=== PATIENT | female | born 1960 | race Caucasian/White ===

== ENCOUNTER 2019-10-05 10:20 | Outpatient (CLI) | payer OTHER, SELFPAY ==
[2019-10-05 11:45] LABS: Thyroid Stimulating Hormone 0.786 uIU/mL (0.465-4.680)
[2019-10-05 11:50] LABS: Blood Urea Nitrogen 36 mg/dL (7-17); Calcium 9.4 mg/dL (8.4-10.2); Carbon Dioxide 22 mmol/L (22-30); Chloride 100 mmol/L (98-107); Estimated Glomerular Filt Rate 26; Glucose 95 mg/dL (65-105); Potassium 4.6 mmol/L (3.4-5.0); Sodium 140 mmol/L (137-145)
== END 2019-10-05 10:21 | disposition home or self-care (01) ==
PROVIDERS: PCP Family Medicine; Visit Provider Nurse Practitioner Family
DX: E03.9 Hypothyroidism, unspecified (principal); N18.3 Chronic kidney disease, stage 3 (moderate)
CPT/HCPCS: 36415; 80048; 84436; 84443

== ENCOUNTER 2019-11-10 09:00 | Outpatient (CLI) | payer OTHER, SELFPAY ==
[2019-11-10 09:29] LABS: Hematocrit 33.6 % (37.0-47.0); Hemoglobin 10.9 g/dL (12.0-15.0); Mean Corpuscular HGB Conc 32.4 g/dl (32-36); Mean Corpuscular Hemoglobin 27.9 pg (26-34); Mean Corpuscular Volume 86.2 fl (80-100); Mean Platelet Volume 9.8 fl (7.4-10.4); Platelet Count Result 436 k/mm3 (150-375); Red Cell Distribution Width 13.7 % (11.5-14.5); White Blood Count 8.9 K/mm3 (4.5-10.0)
[2019-11-10 09:31] LABS: Add Urine Microscopic? YES; Appearance Urine Clear (Clear); Bacteria Urine Trace /hpf; Bilirubin Urine Negative (Negative); Blood Urine Negative (Negative); Color Urine Yellow (Yellow); Glucose Urine UA Negative (Negative); Ketones Urine Negative (Negative); Leukocyte Esterase Ur Trace LEU/UL (NEGATIVE); Mucus Urine Rare /lpf; Nitrate Urine Negative (Negative); Protein Urine Negative (Negative); RBC Urine 0-2 /hpf (0-2); Specific Grav Ur 1.015 (1.001-1.035); Squamous Epithelial Cell Urine Occasional /hpf (Few); Urobilinogen Urine Negative mg/dL (<2.0); WBC Urine 0-3 /hpf (0-3)
[2019-11-10 09:36] LABS: Total Protein Urine Random 10 mg/dL
[2019-11-10 09:44] LABS: Albumin Level 4.5 g/dL (3.5-5.1); Blood Urea Nitrogen 34 mg/dL (7-17); Calcium 9.4 mg/dL (8.4-10.2); Carbon Dioxide 24 mmol/L (22-30); Chloride 103 mmol/L (98-107); Estimated Glomerular Filt Rate 29; Glucose 106 mg/dL (65-105); Potassium 4.7 mmol/L (3.4-5.0); Sodium 136 mmol/L (137-145)
[2019-11-10 09:51] LABS: Complement C3 124 mg/dL (88-165)
[2019-11-10 09:54] LABS: Erythrocyte Sedimentation Rate 77 mm/hr (0-20)
[2019-11-10 09:56] LABS: Parathyroid Intact 95.8 pg/mL (7.5-53.5)
[2019-11-10 13:13] LABS: Vitamin D 25 Hydroxy 53.6 ng/mL
[2019-11-12 13:35] LABS: Complement Total CH50 >60 U/mL (31-60)
[2019-11-12 18:13] LABS: Kappa\\Lambda Light Chains 1.27 (0.26-1.65); Lambda Light Chain 30.7 mg/L (5.7-26.3)
== END 2019-11-10 09:01 | disposition home or self-care (01) ==
PROVIDERS: PCP Family Medicine; Visit Provider Internal Medicine Nephrology
DX: N18.3 Chronic kidney disease, stage 3 (moderate) (principal)
CPT/HCPCS: 36415; 80069; 81001; 82306; 82570; 83883; 83970; 84156; 85027; 85652; 86038; 86160; 86162; 86334; 86335

== ENCOUNTER 2020-01-27 09:07 | Outpatient (CLI) | payer OTHER, SELFPAY ==
[2020-01-27 09:42] LABS: Basophils Percent Auto 0.5 % (0.2-1.2); Eosinophils Absolute Auto 0.3 K/mm3 (0-0.3); Eosinophils Percent Auto 2.8 % (0-4.4); Hematocrit 35.5 % (37.0-47.0); Hemoglobin 11.2 g/dL (12.0-15.0); Immature Granulocyte Absolute 0.02 K/mm3 (0.00-0.031); Immature Granulocyte Percent A 0.2 % (0-0.5); Lymphocytes Absolute Auto 2.27 K/mm3 (0.9-3.2); Lymphocytes Percent Auto 25.7 % (18.3-44.2); Mean Corpuscular HGB Conc 31.5 g/dl (32-36); Mean Corpuscular Hemoglobin 27.7 pg (26-34); Mean Corpuscular Volume 87.9 fl (80-100); Mean Platelet Volume 9.8 fl (7.4-10.4); Monocytes Absolute Auto 0.5 K/mm3 (0.1-0.6); Monocytes Percent Auto 5.1 % (2.6-8.5); Neutrophils Absolute Auto 5.8 K/mm3 (1.3-6.7); Neutrophils Percent Auto 65.7 % (45.5-73.1); Platelet Count Result 448 k/mm3 (150-375); Red Blood Count 4.04 M/mm3 (4.2-5.4); Red Cell Distribution Width 13.3 % (11.5-14.5); White Blood Count 8.8 K/mm3 (4.5-10.0)
[2020-01-27 09:53] LABS: Alanine Aminotransferase 16 U/L (4-35); Albumin Level 4.6 g/dL (3.5-5.1); Alkaline Phosphatase 99 U/L (38-126); Aspartate Amino Transferase 23 U/L (14-36); Bilirubin,Total 0.4 mg/dL (0.2-1.3); Blood Urea Nitrogen 36 mg/dL (7-17); Calcium 9.4 mg/dL (8.4-10.2); Carbon Dioxide 22 mmol/L (22-30); Chloride 105 mmol/L (98-107); Cholesterol 208 mg/dL (0-200); Estimated Glomerular Filt Rate 21; Glucose 95 mg/dL (65-105); HDL Direct 44 mg/dL; Potassium 5.1 mmol/L (3.4-5.0); Sodium 137 mmol/L (137-145); Triglycerides 122 mg/dL (<150)
[2020-01-27 09:58] LABS: Hemoglobin A1C 5.8 % (<5.7)
[2020-01-27 10:03] LABS: LDL Cholesterol Direct 135 mg/dL
[2020-01-27 10:19] LABS: Free T4 Free Thyroxine 1.24 ng/mL (0.78-2.19)
[2020-01-27 10:40] LABS: Creatinine Urine 163.8 mg/dL
[2020-01-27 12:46] LABS: MALB Creatinine Ratio 5.6 mg/g (0-30); Microalbumin Urine Random 9.2 mg/L (0-16.7)
== END 2020-01-27 09:08 | disposition home or self-care (01) ==
LOC: ANHLAB 09:08
PROVIDERS: PCP Family Medicine; Visit Provider Family Medicine
DX: I10 Essential (primary) hypertension (principal); E03.9 Hypothyroidism, unspecified; R73.03 Prediabetes; E04.9 Nontoxic goiter, unspecified; E78.2 Mixed hyperlipidemia
CPT/HCPCS: 36415; 80053; 80061; 82043; 83036; 84439; 84443; 85025

== ENCOUNTER 2020-02-14 12:35 | Outpatient (CLI) | payer OTHER, SELFPAY ==
--- NOTE | ~2020-02-14 | NM_ITS ---
EXAMINATION: NM renal flow and function DATE: 02/14/2020 14:04 INDICATION: Stage IV chronic kidney disease TECHNIQUE: 7.8 mCi Tc-99m MAG3 was administered IV. The patient was scanned in the supine position. A posterior abdominal radionuclide angiogram was obtained. A subsequent time course of static images of the kidneys, ureters, and bladder was obtained. COMPARISON: CT dated 09/07/2010 FINDINGS: The posterior abdominal radionuclide angiogram and sequential static images show normal size, positio n, and morphology of the kidneys. Peak renal parenchymal uptake was 19 min in left kidney and 20 min in right kidney (normal peak 3-5 minutes). The relative early renal uptake was 35% on the right and 65% on the left (<40% is abnormal). No abnormalities of the ureters or bladder are seen. IMPRESSION: 1. Asymmetric renal function with right kidney providing 35% and left kidney 65% of total renal func tion. 2. Delayed time to peak uptake in both kidneys consistent with nonspecific nephropathy. Reviewed, dictated and finalized at location A. IMPRESSION: 1. Asymmetric renal function with right kidney providing 35% and left kidney 6 5% of total renal function. 2. Delayed time to peak uptake in both kidneys consistent with nonspecific nep hropathy.
== END 2020-02-14 12:36 | disposition home or self-care (01) ==
PROVIDERS: PCP Family Medicine; Visit Provider Internal Medicine Nephrology
DX: N18.4 Chronic kidney disease, stage 4 (severe) (principal)
CPT/HCPCS: 78707; A9562

== ENCOUNTER 2020-02-23 10:17 | Outpatient (CLI) | payer OTHER, SELFPAY ==
[2020-02-23 10:56] LABS: Hematocrit 35.6 % (37.0-47.0); Hemoglobin 11.4 g/dL (12.0-15.0); Mean Corpuscular Hemoglobin 27.9 pg (26-34); Mean Corpuscular Volume 87.3 fl (80-100); Mean Platelet Volume 9.4 fl (7.4-10.4); Platelet Count Result 458 k/mm3 (150-375); Red Blood Count 4.08 M/mm3 (4.2-5.4); Red Cell Distribution Width 13.2 % (11.5-14.5); White Blood Count 8.4 K/mm3 (4.5-10.0)
[2020-02-23 11:13] LABS: Albumin Level 4.3 g/dL (3.5-5.1); Blood Urea Nitrogen 16 mg/dL (7-17); Calcium 8.8 mg/dL (8.4-10.2); Carbon Dioxide 22 mmol/L (22-30); Chloride 107 mmol/L (98-107); Estimated Glomerular Filt Rate 39; Glucose 91 mg/dL (65-105); Phosphorus 3.4 mg/dL (2.5-4.5); Potassium 4.6 mmol/L (3.4-5.0); Sodium 137 mmol/L (137-145)
[2020-02-23 11:20] LABS: Creatinine Urine 197.4 mg/dL; Total Protein Urine Random 13 mg/dL
[2020-02-23 11:25] LABS: Parathyroid Intact 140.2 pg/mL (7.5-53.5)
[2020-02-23 11:53] LABS: Potassium Urine Random 92.6 meq/L; Sodium Urine Random 67 meq/L
[2020-02-23 12:09] LABS: Vitamin D 25 Hydroxy 71.5 ng/mL
[2020-02-29 13:26] LABS: Chloride Rand Ur 110 mmol/L (32-290); Chloride/Creatinine Rand Ur 58 (38-318); Creatinine Random Urine 190 mg/dL (20-275)
== END 2020-02-23 10:18 | disposition home or self-care (01) ==
PROVIDERS: PCP Family Medicine; Visit Provider Internal Medicine Nephrology
DX: N18.4 Chronic kidney disease, stage 4 (severe) (principal)
CPT/HCPCS: 36415; 80069; 82306; 82436; 82570; 83970; 84133; 84156; 84300; 85027; 85999

== ENCOUNTER 2020-03-28 11:11 | Outpatient (CLI) | payer OTHER, SELFPAY ==
[2020-03-28 11:50] LABS: Albumin Level 4.3 g/dL (3.5-5.1); Anion Gap 12.4 mmol/L (7-16); Blood Urea Nitrogen 18 mg/dL (7-17); Carbon Dioxide 23 mmol/L (22-30); Chloride 106 mmol/L (98-107); Estimated Glomerular Filt Rate 39; Glucose 99 mg/dL (65-105); Phosphorus 3.9 mg/dL (2.5-4.5); Potassium 4.4 mmol/L (3.4-5.0); Sodium 137 mmol/L (137-145)
[2020-03-28 11:50] LABS: Creatinine Urine 110.2 mg/dL; Total Protein Urine Random 10 mg/dL
== END 2020-03-28 11:12 | disposition home or self-care (01) ==
PROVIDERS: PCP Family Medicine; Referring Provider Family Medicine; Visit Provider Internal Medicine Nephrology
DX: N18.3 Chronic kidney disease, stage 3 (moderate) (principal)
CPT/HCPCS: 36415; 80069; 82570; 84156

== ENCOUNTER 2020-06-22 08:58 | Outpatient (CLI) | payer OTHER, SELFPAY ==
[2020-06-22 09:54] LABS: Creatinine Urine 118.2 mg/dL; Total Protein Urine Random 10 mg/dL
[2020-06-22 09:54] LABS: Albumin Level 4.3 g/dL (3.5-5.1); Anion Gap 11 mmol/L (8-16); Blood Urea Nitrogen 37 mg/dL (7-17); Calcium 9.1 mg/dL (8.4-10.2); Carbon Dioxide 25 mmol/L (22-30); Chloride 101 mmol/L (98-107); Estimated Glomerular Filt Rate 36; Glucose 101 mg/dL (65-105); Phosphorus 3.5 mg/dL (2.5-4.5); Potassium 4.4 mmol/L (3.4-5.0); Sodium 137 mmol/L (137-145)
== END 2020-06-22 08:59 | disposition home or self-care (01) ==
PROVIDERS: PCP Family Medicine; Referring Provider Family Medicine; Visit Provider Internal Medicine Nephrology
DX: N18.30 Chronic kidney disease, stage 3 unspecified (principal)
CPT/HCPCS: 36415; 80069; 82570; 84156

== ENCOUNTER 2020-06-28 11:27 | Outpatient (CLI) | payer OTHER, SELFPAY ==
[2020-06-28 12:34] LABS: Hemoglobin A1C 5.6 % (<5.7)
== END 2020-06-28 11:28 | disposition home or self-care (01) ==
LOC: ANHLAB 11:29
PROVIDERS: PCP Family Medicine; Visit Provider Physician Assistant
DX: R73.03 Prediabetes (principal)
CPT/HCPCS: 36415; 83036

== ENCOUNTER 2020-09-18 14:13 | Outpatient (CLI) | payer OTHER, SELFPAY ==
[2020-09-18 15:07] LABS: Basophils Percent Auto 0.5 % (0.2-1.2); Eosinophils Absolute Auto 0.3 K/mm3 (0-0.3); Eosinophils Percent Auto 3.8 % (0-4.4); Hemoglobin 11.8 g/dL (12.0-15.0); Immature Granulocyte Absolute 0.02 K/mm3 (0.00-0.031); Immature Granulocyte Percent A 0.2 % (0-0.5); Lymphocytes Absolute Auto 2.56 K/mm3 (0.9-3.2); Lymphocytes Percent Auto 30.7 % (18.3-44.2); Mean Corpuscular HGB Conc 31.9 g/dl (32-36); Mean Corpuscular Hemoglobin 26.5 pg (26-34); Mean Corpuscular Volume 83.1 fl (80-100); Mean Platelet Volume 9.4 fl (7.4-10.4); Monocytes Absolute Auto 0.5 K/mm3 (0.1-0.6); Monocytes Percent Auto 5.9 % (2.6-8.5); Neutrophils Absolute Auto 4.9 K/mm3 (1.3-6.7); Neutrophils Percent Auto 58.9 % (45.5-73.1); Platelet Count Result 420 k/mm3 (150-375); Red Blood Count 4.45 M/mm3 (4.2-5.4); Red Cell Distribution Width 15.9 % (11.5-14.5); White Blood Count 8.4 K/mm3 (4.5-10.0)
[2020-09-18 15:20] LABS: Alanine Aminotransferase 19 U/L (4-35); Albumin Level 4.1 g/dL (3.5-5.1); Alkaline Phosphatase 94 U/L (38-126); Anion Gap 11 mmol/L (8-16); Aspartate Amino Transferase 26 U/L (14-36); Bilirubin,Total 0.2 mg/dL (0.2-1.3); Blood Urea Nitrogen 26 mg/dL (7-17); Calcium 8.6 mg/dL (8.4-10.2); Carbon Dioxide 26 mmol/L (22-30); Chloride 101 mmol/L (98-107); Estimated Glomerular Filt Rate 27; Glucose 98 mg/dL (65-105); Potassium 4.4 mmol/L (3.4-5.0); Sodium 138 mmol/L (137-145)
[2020-09-18 15:32] LABS: Parathyroid Intact 110.6 pg/mL (7.5-53.5)
[2020-09-18 15:51] LABS: Thyroid Stimulating Hormone 0.419 uIU/mL (0.465-4.680)
[2020-09-18 17:10] LABS: Free T4 Free Thyroxine 1.22 ng/mL (0.78-2.19)
[2020-09-18 17:32] LABS: Total Triiodothyronine (T3) 1.23 NG/ML (0.97-1.69)
== END 2020-09-18 14:14 | disposition home or self-care (01) ==
PROVIDERS: PCP Family Medicine; Visit Provider Physician Assistant
DX: E03.9 Hypothyroidism, unspecified (principal); I10 Essential (primary) hypertension
CPT/HCPCS: 36415; 80053; 83970; 84439; 84443; 84480; 85025

== ENCOUNTER 2020-09-25 09:48 | Outpatient (CLI) | payer OTHER, SELFPAY ==
[2020-09-25 10:40] LABS: Albumin Level 4.2 g/dL (3.5-5.1); Anion Gap 8 mmol/L (8-16); Blood Urea Nitrogen 17 mg/dL (7-17); Calcium 9.2 mg/dL (8.4-10.2); Carbon Dioxide 26 mmol/L (22-30); Chloride 106 mmol/L (98-107); Estimated Glomerular Filt Rate 36; Glucose 100 mg/dL (65-105); Phosphorus 3.7 mg/dL (2.5-4.5); Potassium 4.6 mmol/L (3.4-5.0); Sodium 140 mmol/L (137-145)
[2020-09-25 10:54] LABS: Creatinine Urine 161.6 mg/dL; Total Protein Urine Random 11 mg/dL; Ur Ttl Prot Creatinine Ratio 0.07 mg/mg (0-0.20)
== END 2020-09-25 09:49 | disposition home or self-care (01) ==
PROVIDERS: PCP Family Medicine; Visit Provider Internal Medicine Nephrology
DX: N18.32 Chronic kidney disease, stage 3b (principal)
CPT/HCPCS: 36415; 80069; 82570; 84156

== ENCOUNTER 2020-10-26 09:50 | Outpatient (CLI) | payer OTHER, SELFPAY ==
[2020-10-26 10:49] LABS: Albumin Level 4.3 g/dL (3.5-5.1); Anion Gap 7 mmol/L (8-16); Blood Urea Nitrogen 24 mg/dL (7-17); Carbon Dioxide 25 mmol/L (22-30); Chloride 104 mmol/L (98-107); Estimated Glomerular Filt Rate 36; Glucose 96 mg/dL (65-105); Phosphorus 3.6 mg/dL (2.5-4.5); Potassium 4.5 mmol/L (3.4-5.0); Sodium 136 mmol/L (137-145)
[2020-10-29 16:32] LABS: Chloride Rand Ur 73 mmol/L (32-290); Chloride/Creatinine Rand Ur 94 (38-318); Creatinine Random Urine 78 mg/dL (20-275)
== END 2020-10-26 09:51 | disposition home or self-care (01) ==
LOC: ANHLAB 09:52
PROVIDERS: PCP Family Medicine; Visit Provider Internal Medicine Nephrology
DX: N18.32 Chronic kidney disease, stage 3b (principal)
CPT/HCPCS: 36415; 80069; 82436; 82570; 85999

== ENCOUNTER 2020-11-22 08:51 | Outpatient (CLI) | payer OTHER, SELFPAY ==
[2020-11-22 09:04] LABS: Hematocrit 38.6 % (37.0-47.0); Hemoglobin 12.3 g/dL (12.0-15.0)
== END 2020-11-22 08:52 | disposition home or self-care (01) ==
PROVIDERS: PCP Family Medicine; Visit Provider Physician Assistant
DX: K21.9 Gastro-esophageal reflux disease without esophagitis (principal); N18.30 Chronic kidney disease, stage 3 unspecified; D64.9 Anemia, unspecified; D63.8 Anemia in other chronic diseases classified elsewhere; E03.9 Hypothyroidism, unspecified
CPT/HCPCS: 36415; 84439; 84443; 85014; 85018

== ENCOUNTER 2021-01-02 08:17 | Outpatient (CLI) | payer OTHER, SELFPAY ==
[2021-01-02 08:41] LABS: Hematocrit 36.4 % (37.0-47.0); Hemoglobin 11.5 g/dL (12.0-15.0); Mean Corpuscular HGB Conc 31.6 g/dl (32-36); Mean Corpuscular Hemoglobin 26.3 pg (26-34); Mean Corpuscular Volume 83.3 fl (80-100); Mean Platelet Volume 9.4 fl (7.4-10.4); Platelet Count Result 423 k/mm3 (150-375); Red Blood Count 4.37 M/mm3 (4.2-5.4); Red Cell Distribution Width 14.8 % (11.5-14.5); White Blood Count 7.4 K/mm3 (4.5-10.0)
[2021-01-02 08:47] LABS: Total Protein Urine Random 11 mg/dL; Ur Ttl Prot Creatinine Ratio 0.15 mg/mg (0-0.20)
[2021-01-02 08:52] LABS: Alanine Aminotransferase 15 U/L (4-35); Albumin Level 4.2 g/dL (3.5-5.1); Anion Gap 7 mmol/L (8-16); Blood Urea Nitrogen 20 mg/dL (7-17); Calcium 8.9 mg/dL (8.4-10.2); Carbon Dioxide 28 mmol/L (22-30); Chloride 102 mmol/L (98-107); Cholesterol 184 mg/dL (0-200); Estimated Glomerular Filt Rate 36; Glucose 106 mg/dL (65-105); HDL Direct 42 mg/dL; Phosphorus 3.1 mg/dL (2.5-4.5); Potassium 4.5 mmol/L (3.4-5.0); Sodium 137 mmol/L (137-145); Triglycerides 148 mg/dL (<150)
[2021-01-02 09:03] LABS: Parathyroid Intact 106.7 pg/mL (7.5-53.5)
[2021-01-02 09:04] LABS: LDL Cholesterol Direct 106 mg/dL
== END 2021-01-02 08:18 | disposition home or self-care (01) ==
PROVIDERS: PCP Family Medicine; Visit Provider Internal Medicine Nephrology
DX: N18.31 Chronic kidney disease, stage 3a (principal); E78.5 Hyperlipidemia, unspecified
CPT/HCPCS: 36415; 80061; 80069; 82306; 82570; 83970; 84156; 84460; 85027

== ENCOUNTER 2021-05-14 09:27 | Outpatient (CLI) | payer OTHER, SELFPAY ==
[2021-05-14 10:22] LABS: Hematocrit 37.2 % (37.0-47.0); Hemoglobin 11.6 g/dL (12.0-15.0); Mean Corpuscular HGB Conc 31.2 g/dl (32-36); Mean Corpuscular Hemoglobin 27.1 pg (26-34); Mean Corpuscular Volume 86.9 fl (80-100); Mean Platelet Volume 9.3 fl (7.4-10.4); Platelet Count Result 395 k/mm3 (150-375); Red Blood Count 4.28 M/mm3 (4.2-5.4); Red Cell Distribution Width 14.9 % (11.5-14.5); White Blood Count 8.5 K/mm3 (4.5-10.0)
[2021-05-14 10:35] LABS: Albumin Level 4.4 g/dL (3.5-5.1); Anion Gap 10 mmol/L (8-16); Blood Urea Nitrogen 24 mg/dL (7-17); Carbon Dioxide 24 mmol/L (22-30); Chloride 104 mmol/L (98-107); Estimated Glomerular Filt Rate 36; Glucose 98 mg/dL (65-110); Phosphorus 3.6 mg/dL (2.5-4.5); Potassium 4.2 mmol/L (3.4-5.0); Sodium 138 mmol/L (137-145)
[2021-05-14 10:47] LABS: Parathyroid Intact 128.6 pg/mL (7.5-53.5)
[2021-05-14 11:22] LABS: Creatinine Urine 121.4 mg/dL; Total Protein Urine Random 10 mg/dL; Ur Ttl Prot Creatinine Ratio 0.08 mg/mg (0-0.20)
== END 2021-05-14 09:28 | disposition home or self-care (01) ==
PROVIDERS: PCP Family Medicine; Visit Provider Internal Medicine Nephrology
DX: N18.32 Chronic kidney disease, stage 3b (principal)
CPT/HCPCS: 36415; 80069; 82570; 83970; 84156; 85027

== ENCOUNTER 2021-11-19 09:14 | Outpatient (CLI) | payer OTHER, SELFPAY ==
[2021-11-19 09:41] LABS: Hemoglobin 11.9 g/dL (12.0-15.0); Mean Corpuscular HGB Conc 30.5 g/dl (32-36); Mean Corpuscular Volume 85.3 fl (80-100); Mean Platelet Volume 9.5 fl (7.4-10.4); Platelet Count Result 422 k/mm3 (150-375); Red Blood Count 4.57 M/mm3 (4.2-5.4); Red Cell Distribution Width 15.8 % (11.5-14.5); White Blood Count 8.3 K/mm3 (4.5-10.0)
[2021-11-19 09:47] LABS: Creatinine Urine 111.5 mg/dL; Total Protein Urine Random 7 mg/dL; Ur Ttl Prot Creatinine Ratio 0.06 mg/mg (0-0.20)
[2021-11-19 09:51] LABS: Alanine Aminotransferase 17 U/L (4-35); Albumin Level 4.3 g/dL (3.5-5.1); Anion Gap 7 mmol/L (8-16); Blood Urea Nitrogen 25 mg/dL (7-17); Calcium 8.7 mg/dL (8.4-10.2); Carbon Dioxide 23 mmol/L (22-30); Chloride 106 mmol/L (98-107); Cholesterol 206 mg/dL (0-200); Estimated Glomerular Filt Rate 38; Glucose 90 mg/dL (65-110); HDL Direct 39 mg/dL; Phosphorus 3.7 mg/dL (2.5-4.5); Potassium 4.5 mmol/L (3.4-5.0); Sodium 136 mmol/L (137-145); Triglycerides 141 mg/dL (<150)
[2021-11-19 10:01] LABS: LDL Cholesterol Direct 118 mg/dL
== END 2021-11-19 09:15 | disposition home or self-care (01) ==
PROVIDERS: PCP Family Medicine; Visit Provider Internal Medicine Nephrology
DX: N18.32 Chronic kidney disease, stage 3b (principal)
CPT/HCPCS: 36415; 80061; 80069; 82570; 83970; 84156; 84460; 85027

== ENCOUNTER 2021-12-24 10:55 | Outpatient (CLI) | payer OTHER, SELFPAY ==
[2021-12-24 11:55] LABS: Hematocrit 38.8 % (37.0-47.0); Hemoglobin 11.9 g/dL (12.0-15.0); Mean Corpuscular HGB Conc 30.7 g/dl (32-36); Mean Corpuscular Hemoglobin 26.2 pg (26-34); Mean Corpuscular Volume 85.5 fl (80-100); Mean Platelet Volume 9.7 fl (7.4-10.4); Platelet Count Result 418 k/mm3 (150-375); Red Blood Count 4.54 M/mm3 (4.2-5.4); Red Cell Distribution Width 15.6 % (11.5-14.5); White Blood Count 9.7 K/mm3 (4.5-10.0)
[2021-12-24 12:05] LABS: Alanine Aminotransferase 18 U/L (4-35); Albumin Level 4.5 g/dL (3.5-5.1); Anion Gap 11 mmol/L (8-16); Blood Urea Nitrogen 22 mg/dL (7-17); Calcium 8.9 mg/dL (8.4-10.2); Carbon Dioxide 20 mmol/L (22-30); Chloride 105 mmol/L (98-107); Creatine Kinase 81 U/L (30-135); Estimated Glomerular Filt Rate 42; Glucose 92 mg/dL (65-110); Phosphorus 3.8 mg/dL (2.5-4.5); Potassium 4.2 mmol/L (3.4-5.0); Sodium 136 mmol/L (137-145)
[2021-12-24 12:07] LABS: Creatinine Urine 114.8 mg/dL; Total Protein Urine Random 8 mg/dL; Ur Ttl Prot Creatinine Ratio 0.07 mg/mg (0-0.20)
[2021-12-24 12:16] LABS: LDL Cholesterol Direct 137 mg/dL
[2021-12-24 13:42] LABS: Parathyroid Intact 126.5 pg/mL (7.5-53.5)
== END 2021-12-24 10:56 | disposition home or self-care (01) ==
LOC: ANHLAB 10:58
PROVIDERS: PCP Family Medicine; Visit Provider Internal Medicine Nephrology
DX: E21.1 Secondary hyperparathyroidism, not elsewhere classified (principal); E78.2 Mixed hyperlipidemia; N18.32 Chronic kidney disease, stage 3b
CPT/HCPCS: 36415; 80069; 82306; 82550; 82570; 83721; 83970; 84156; 84460; 85027

== ENCOUNTER 2022-01-09 11:14 | Outpatient (CLI) | payer OTHER, SELFPAY ==
[2022-01-09 12:07] LABS: Alanine Aminotransferase 17 U/L (6-35); Creatine Kinase 75 U/L (30-135)
== END 2022-01-09 11:15 | disposition home or self-care (01) ==
LOC: ANHLAB 11:16
PROVIDERS: PCP Family Medicine; Visit Provider Internal Medicine Nephrology
DX: E78.5 Hyperlipidemia, unspecified (principal)
CPT/HCPCS: 36415; 82550; 84460

== ENCOUNTER 2022-03-12 00:06 | Day surgery (SDC) | payer OTHER, SELFPAY ==
[2022-02-27 13:17] VITALS: BMI 38.2
[2022-03-12 06:52] VITALS: BP 132/60; PULSE 80; RESP 18; TEMP 36.1; O2SAT 97
[2022-03-12] MEDS: LACTATED RINGERS 1,000 ML 150 ML IV CONT (07:04)
--- NOTE | 2022-03-12 07:25 | WPDGICN ---
Assessment and Plan Assessment and plan (1) Hx of colonic polyps: Code(s): Z86.010 - Personal history of colonic polyps Status: Acute Assessment and Plan: Patient has a history of colon polyps more than 5 years ago. Plan is for surveillance colonoscopy at this time. Further recommendations will be given after endoscopy. Typically follow-up is performed every 5 years. GI Consult Note Consult date/time: 03/12/22 07:25 Reason for consult: History of colon polyps. HPI: Valeria Garcia is a 61 year old female Presents today for screening colonoscopy. Patient gives a history of prior colon polyps. She states many years ago more than 5 years ago she had colon polyps removed at a clinic in [place]. Patient states that her current weight appetite and bowel movements are normal. She denies abdominal pain she has had no bleeding. Type of colon polyps removed at that time ir unavailable. Patient currently followed because of chronic kidney disease. She is known to have COPD and hypertension. Family history is noncontributory. She is unaware of any family members who may have had colon polyps or cancer. She presents today for screening colonoscopy. Review of Systems Review of Systems: Review of systems noncontributory. [facility] Past Medical History Medical History Adult hypothyroidism Chronic GERD Chronic kidney disease, stage 3 (moderate) Chronic obstructive pulmonary disease, unspecified Essential (primary) hypertension History of tobacco abuse Major depressive disorder, recurrent, mild Mixed hyperlipidemia OAB (overactive bladder) Prediabetes Vitamin D deficiency, unspecified Family History Family History Mother Diabetes mellitus, Onset Age: 80 Hypertension, Onset Age: 80 Family history of cardiovascular disease, Onset Age: 80 Sibling Patient's sister is in good health Patient's brother is in good health Father Family history of malignant neoplasm, Onset Age: 60 Social History Social History (Updated 12/27/21 @ 08:49 by Arpita Wheeler) Social History: Smoking packs per day: 1 Smoking cigarettes per day: 20.0 Years smoked: 39 Smoking pack-years: 39.00 Smoking status: Former smoker Tobacco type: cigarettes Second hand tobacco smoke exposure: No Smoking end date: 08/25/12 Alcohol intake: former Substance use: never Substance use type: does not use Living arrangements: with family Gender identity (if verbalized by the patient): Female Sexual Orientation (if Verbalized by the Patient): Straight or Heterosexual Spiritual care concerns: No Meds Home Medications and Allergies Home Medications Medication Instructions Recorded Confirmed Type ferrous sulfate 325 mg (65 mg 325 mg PO 3XW #90 tabs 09/20/20 03/12/22 Rx iron) tablet umeclidinium 62.5 mcg/actuation 1 inh inhalation DAILY #90 ea 09/20/20 03/12/22 Rx blister powder for inhalation (Incruse Ellipta) bupropion HCl 150 mg tablet,12 hr 150 mg PO BID #180 tabs 04/19/21 03/12/22 Rx sustained-release ergocalciferol (vitamin D2) 1,250 50,000 unit PO WEEKLY #14 caps 06/29/21 03/12/22 Rx mcg (50,000 unit) capsule fluoxetine 20 mg tablet 20 mg PO DAILY #90 tabs 08/16/21 03/12/22 Rx esomeprazole magnesium 40 mg 40 mg PO DAILY #90 caps 12/04/21 03/12/22 Rx capsule,delayed release (Nexium) ciclopirox 8 % topical solution 1 applic topical QHS 4 weeks #6.6 12/27/21 03/12/22 Rx mL oxybutynin chloride 10 mg 10 mg PO DAILY #30 tabs 12/27/21 03/12/22 Rx tablet,extended release 24 hr pravastatin 40 mg tablet 40 mg PO DAILY 12/27/21 03/12/22 History sodium sul 1.479 gram-potas ch See Rx Instructions PO PER PKG DIR 01/29/22 03/12/22 Rx 0.188 gram-magnes sul 0.225 gram #24 tabs tablet (Sutab) levothyroxine 75 mcg tablet 75 mcg PO DAILY
--- NOTE | 2022-03-12 07:29 | WPDANESEPPF ---
Anes - Initial Pre Proc Eval Procedure: Operation Date: 03/12/22 08:00 Proposed Procedures p Screening Colonoscopy - Kal Enciso MD Date/Time: 03/12/22 07:29 Surgeon: Kal Enciso MD Pre Op Diagnosis: hx of colon polyps, neoplasm screening Patient Data Age: 61 Gender: F Height: 1.6 m Weight: 95.8 kg Last Vital Signs Temp 97.0 F L 03/12/22 06:52 Pulse 80 03/12/22 06:52 Resp 18 03/12/22 06:52 BP 132/60 03/12/22 06:52 Pulse Ox 97 03/12/22 06:52 O2 Del Method Room Air 03/12/22 06:52 Allergies Allergy/AdvReac Type Severity Reaction Status Date / Time No Known Allergies Allergy Mild Verified 03/12/22 06:51 Home Medications Medication Instructions Recorded Confirmed Type ferrous sulfate 325 mg (65 mg 325 mg PO 3XW #90 tabs 09/20/20 03/12/22 Rx iron) tablet umeclidinium 62.5 mcg/actuation 1 inh inhalation DAILY #90 ea 09/20/20 03/12/22 Rx blister powder for inhalation (Incruse Ellipta) bupropion HCl 150 mg tablet,12 hr 150 mg PO BID #180 tabs 04/19/21 03/12/22 Rx sustained-release ergocalciferol (vitamin D2) 1,250 50,000 unit PO WEEKLY #14 caps 06/29/21 03/12/22 Rx mcg (50,000 unit) capsule fluoxetine 20 mg tablet 20 mg PO DAILY #90 tabs 08/16/21 03/12/22 Rx esomeprazole magnesium 40 mg 40 mg PO DAILY #90 caps 12/04/21 03/12/22 Rx capsule,delayed release (Nexium) ciclopirox 8 % topical solution 1 applic topical QHS 4 weeks #6.6 12/27/21 03/12/22 Rx mL oxybutynin chloride 10 mg 10 mg PO DAILY #30 tabs 12/27/21 03/12/22 Rx tablet,extended release 24 hr pravastatin 40 mg tablet 40 mg PO DAILY 12/27/21 03/12/22 History sodium sul 1.479 gram-potas ch See Rx Instructions PO PER PKG DIR 01/29/22 03/12/22 Rx 0.188 gram-magnes sul 0.225 gram #24 tabs tablet (Sutab) levothyroxine 75 mcg tablet 75 mcg PO DAILY 02/27/22 03/12/22 History olmesartan 20 mg tablet 20 mg PO DAILY 02/27/22 03/12/22 History lorazepam 0.5 mg tablet 0.5 mg PO DAILY PRN anxiety #30 02/28/22 03/12/22 Rx tabs Patient hx anesthesia problems: none Family hx anesthesia problems: none Results Review: All pre-operative results and documents have been reviewed as part of the pre-operative evaluation. [facility] Past Medical History Medical History Adult hypothyroidism Chronic GERD Chronic kidney disease, stage 3 (moderate) Chronic obstructive pulmonary disease, unspecified Essential (primary) hypertension History of tobacco abuse Major depressive disorder, recurrent, mild Mixed hyperlipidemia OAB (overactive bladder) Prediabetes Vitamin D deficiency, unspecified Family History Family History Mother Diabetes mellitus, Onset Age: 80 Hypertension, Onset Age: 80 Family history of cardiovascular disease, Onset Age: 80 Sibling Patient's sister is in good health Patient's brother is in good health Father Family history of malignant neoplasm, Onset Age: 60 Social History Social History (Updated 12/27/21 @ 08:49 by Arpita Wheeler) Social History: Smoking packs per day: 1 Smoking cigarettes per day: 20.0 Years smoked: 39 Smoking pack-years: 39.00 Smoking status: Former smoker Tobacco type: cigarettes Second hand tobacco smoke exposure: No Smoking end date: 08/25/12 Alcohol intake: former Substance use: never Substance use type: does not use Living arrangements: with family Gender identity (if verbalized by the patient): Female Sexual Orientation (if Verbalized by the Patient): Straight or Heterosexual Spiritual care concerns: No Anes - Eval Final PreProcedure Day of Procedure 03/12/22 07:29 Patient weight: obese Heart: regular rate and rhythm Lungs: clear to auscultation Airway: Mallampati scale class II Neurological: alert and oriented Last oral intake: >/= 8 hours ASA classification: III
[2022-03-12 08:18] VITALS: BP 97/60; PULSE 69; RESP 18; O2SAT 97
[2022-03-12 08:28] VITALS: BP 118/74; PULSE 66; RESP 19; O2SAT 98
[2022-03-12 08:38] VITALS: BP 106/64; PULSE 69; RESP 18; O2SAT 98
== END 2022-03-12 08:43 | disposition home or self-care (01) ==
PROVIDERS: PCP Family Medicine; Visit Provider Internal Medicine Gastroenterology
PROC: 0DJD8ZZ Inspection of Lower Intestinal Tract, Via Natural or Artificial Opening Endoscopic (ICD-10-PCS; CPT 45378; principal; 2022-03-12 08:00)
DX: Z12.11 Encounter for screening for malignant neoplasm of colon (principal); D12.2 Benign neoplasm of ascending colon; K64.8 Other hemorrhoids; K21.9 Gastro-esophageal reflux disease without esophagitis; E03.9 Hypothyroidism, unspecified; I12.9 Hypertensive chronic kidney disease with stage 1 through stage 4 chronic kidney disease, or unspecified chronic kidney disease; E55.9 Vitamin D deficiency, unspecified; N32.81 Overactive bladder; E78.2 Mixed hyperlipidemia; J44.9 Chronic obstructive pulmonary disease, unspecified; F32.9 Major depressive disorder, single episode, unspecified; Z87.891 Personal history of nicotine dependence; E66.9 Obesity, unspecified; Z68.37 Body mass index [BMI] 37.0-37.9, adult
CPT/HCPCS: 45385; 88305; J2704; J7120

== ENCOUNTER 2022-05-22 09:12 | Outpatient (CLI) | payer OTHER, SELFPAY ==
[2022-05-22 09:42] LABS: Hematocrit 38.2 % (37.0-47.0); Hemoglobin 11.9 g/dL (12.0-15.0); Mean Corpuscular HGB Conc 31.2 g/dl (32-36); Mean Corpuscular Hemoglobin 26.6 pg (26-34); Mean Corpuscular Volume 85.5 fl (80-100); Mean Platelet Volume 9.3 fl (7.4-10.4); Platelet Count Result 432 k/mm3 (150-375); Red Blood Count 4.47 M/mm3 (4.2-5.4); Red Cell Distribution Width 15.3 % (11.5-14.5); White Blood Count 9.8 K/mm3 (4.5-10.0)
[2022-05-22 09:58] LABS: Albumin Level 4.4 g/dL (3.5-5.1); Anion Gap 12 mmol/L (8-16); Blood Urea Nitrogen 21 mg/dL (7-17); Calcium 8.7 mg/dL (8.4-10.2); Carbon Dioxide 23 mmol/L (22-30); Chloride 102 mmol/L (98-107); Estimated Glomerular Filt Rate 42; Glucose 113 mg/dL (65-110); Phosphorus 3.1 mg/dL (2.5-4.5); Potassium 4.4 mmol/L (3.4-5.0); Sodium 137 mmol/L (137-145)
[2022-05-22 10:09] LABS: LDL Cholesterol Direct 124 mg/dL
[2022-05-22 10:13] LABS: Parathyroid Intact 174.4 pg/mL (7.5-53.5)
[2022-05-22 10:47] LABS: Vitamin D 25 Hydroxy 66.9 ng/mL
[2022-05-22 14:31] LABS: Creatinine Urine 183.2 mg/dL; Total Protein Urine Random 10 mg/dL; Ur Ttl Prot Creatinine Ratio 0.05 mg/mg (0-0.20)
== END 2022-05-22 09:13 | disposition home or self-care (01) ==
LOC: ANHLAB 09:14
PROVIDERS: PCP Family Medicine; Visit Provider Internal Medicine Nephrology
DX: N18.32 Chronic kidney disease, stage 3b (principal); E21.1 Secondary hyperparathyroidism, not elsewhere classified; E78.2 Mixed hyperlipidemia
CPT/HCPCS: 36415; 80069; 82306; 82570; 83721; 83970; 84156; 85027

== ENCOUNTER 2022-08-02 11:09 | Outpatient (CLI) | payer OTHER, SELFPAY ==
--- NOTE | ~2022-08-02 | CT_ITS ---
EXAMINATION: CT lung screening DATE: 08/02/2022 11:32 INDICATION: Personal history of tobacco dependence. TECHNIQUE: Computed tomography (CT) of the chest was performed without intravenous contrast. The dose -length product was 270.90 mGy-cm. Automated exposure control and iterative reconstruction technique were employed. COMPARISON: None FINDINGS: No thoracic lymphadenopathy. No significant pleural or pericardial effusion. There is ather osclerosis of the aorta and coronary arteries. There is emphysema. There is a 5 mm pleural-based righ t lower lobe nodule. There is a 2 mm pleural-based right lower lobe nodule. No endobronchial lesions. There are few scattered 2 mm bilateral pulmonary nodules. There is a 4 mm pleural-based left lower l obe nodule, image 98. IMPRESSION: 1. Lung-RADS category 2: Benign appearance or behavior. Continue annual screening with noncontrast lo w-dose chest CT in 12 months. Reviewed, dictated and finalized at location A. D SERVICE SPECIALIST IMPRESSION: 1. Lung-RADS category 2: Benign appearance or behavior. Continue annual screeni ng with noncontrast low-dose chest CT in 12 months.
[2022-08-02 14:00] LABS: Total Triiodothyronine (T3) 1.23 NG/ML (0.97-1.69)
== END 2022-08-02 11:10 | disposition home or self-care (01) ==
PROVIDERS: Nurse Practitioner Gerontology; PCP Family Medicine; Visit Provider Family Medicine
DX: Z12.2 Encounter for screening for malignant neoplasm of respiratory organs (principal); Z87.891 Personal history of nicotine dependence; E03.9 Hypothyroidism, unspecified
CPT/HCPCS: 36415; 71271; 84439; 84443; 84480

== ENCOUNTER 2022-11-18 12:09 | Outpatient (CLI) | payer OTHER, SELFPAY ==
[2022-11-18 13:27] LABS: Basophils Percent Auto 0.4 % (0.2-1.2); Eosinophils Absolute Auto 0.3 K/mm3 (0-0.3); Eosinophils Percent Auto 3.2 % (0-4.4); Hematocrit 40.1 % (37.0-47.0); Hemoglobin 12.8 g/dL (12.0-15.0); Immature Granulocyte Absolute 0.03 K/mm3 (0.00-0.031); Immature Granulocyte Percent A 0.3 % (0-0.5); Lymphocytes Absolute Auto 2.39 K/mm3 (0.9-3.2); Lymphocytes Percent Auto 24.5 % (18.3-44.2); Mean Corpuscular HGB Conc 31.9 g/dl (32-36); Mean Corpuscular Hemoglobin 27.3 pg (26-34); Mean Corpuscular Volume 85.5 fl (80-100); Mean Platelet Volume 9.9 fl (7.4-10.4); Monocytes Absolute Auto 0.6 K/mm3 (0.1-0.6); Monocytes Percent Auto 6.4 % (2.6-8.5); Neutrophils Absolute Auto 6.4 K/mm3 (1.3-6.7); Neutrophils Percent Auto 65.2 % (45.5-73.1); Platelet Count Result 409 k/mm3 (150-375); Red Blood Count 4.69 M/mm3 (4.2-5.4); Red Cell Distribution Width 14.8 % (11.5-14.5); White Blood Count 9.7 K/mm3 (4.5-10.0)
[2022-11-18 13:33] LABS: Alanine Aminotransferase 25 U/L (6-35); Albumin Level 4.6 g/dL (3.5-5.1); Alkaline Phosphatase 117 U/L (38-126); Anion Gap 11 mmol/L (8-16); Aspartate Amino Transferase 26 U/L (14-36); Bilirubin,Total 0.5 mg/dL (0.2-1.3); Blood Urea Nitrogen 25 mg/dL (7-17); Calcium 9.2 mg/dL (8.4-10.2); Carbon Dioxide 25 mmol/L (22-30); Chloride 102 mmol/L (98-107); Cholesterol 231 mg/dL (0-200); Estimated Glomerular Filt Rate 33; Glucose 94 mg/dL (65-110); HDL Direct 39 mg/dL; Potassium 4.3 mmol/L (3.4-5.0); Sodium 138 mmol/L (137-145); Triglycerides 236 mg/dL (<150)
[2022-11-18 13:45] LABS: LDL Cholesterol Direct 143 mg/dL
[2022-11-18 14:04] LABS: Total Triiodothyronine (T3) 1.26 NG/ML (0.97-1.69)
[2022-11-18 14:15] LABS: Hemoglobin A1C 5.8 % (<5.7)
[2022-11-18 14:46] LABS: Free T4 Free Thyroxine 1.22 ng/mL (0.78-2.19)
== END 2022-11-18 12:10 | disposition home or self-care (01) ==
PROVIDERS: PCP Family Medicine; Visit Provider Nurse Practitioner Gerontology
DX: E03.9 Hypothyroidism, unspecified (principal); E78.2 Mixed hyperlipidemia; I12.9 Hypertensive chronic kidney disease with stage 1 through stage 4 chronic kidney disease, or unspecified chronic kidney disease; N18.30 Chronic kidney disease, stage 3 unspecified
CPT/HCPCS: 36415; 80053; 80061; 83036; 84439; 84443; 84480; 85025

== ENCOUNTER 2022-11-29 08:26 | Outpatient (CLI) | payer OTHER, SELFPAY ==
[2022-11-29 08:45] LABS: Hematocrit 38.8 % (37.0-47.0); Hemoglobin 12.2 g/dL (12.0-15.0); Mean Corpuscular HGB Conc 31.4 g/dl (32-36); Mean Corpuscular Hemoglobin 27.1 pg (26-34); Mean Platelet Volume 9.4 fl (7.4-10.4); Platelet Count Result 384 k/mm3 (150-375); Red Blood Count 4.51 M/mm3 (4.2-5.4); Red Cell Distribution Width 14.8 % (11.5-14.5); White Blood Count 8.8 K/mm3 (4.5-10.0)
[2022-11-29 08:55] LABS: Albumin Level 4.5 g/dL (3.5-5.1); Anion Gap 9 mmol/L (8-16); Blood Urea Nitrogen 25 mg/dL (7-17); Calcium 9.5 mg/dL (8.4-10.2); Carbon Dioxide 27 mmol/L (22-30); Chloride 103 mmol/L (98-107); Estimated Glomerular Filt Rate 38; Glucose 101 mg/dL (65-110); Phosphorus 4.1 mg/dL (2.5-4.5); Potassium 4.6 mmol/L (3.4-5.0); Sodium 139 mmol/L (137-145)
[2022-11-29 09:07] LABS: Parathyroid Intact 62.7 pg/mL (7.5-53.5)
[2022-11-29 09:19] LABS: Creatinine Urine 26.6 mg/dL; Total Protein Urine Random 12 mg/dL; Ur Ttl Prot Creatinine Ratio 0.45 mg/mg (0-0.20)
[2022-11-29 09:36] LABS: Vitamin D 25 Hydroxy 67.9 ng/mL
== END 2022-11-29 08:27 | disposition home or self-care (01) ==
LOC: ANHLAB 08:28
PROVIDERS: PCP Family Medicine; Visit Provider Internal Medicine Nephrology
DX: N18.32 Chronic kidney disease, stage 3b (principal)
CPT/HCPCS: 36415; 80069; 82306; 82570; 83970; 84156; 85027

== ENCOUNTER 2022-12-11 10:14 | Outpatient (CLI) | payer OTHER, SELFPAY ==
[2022-12-11 10:58] LABS: Albumin Level 4.5 g/dL (3.5-5.1); Anion Gap 10 mmol/L (8-16); Blood Urea Nitrogen 28 mg/dL (7-17); Calcium 9.1 mg/dL (8.4-10.2); Carbon Dioxide 25 mmol/L (22-30); Chloride 104 mmol/L (98-107); Estimated Glomerular Filt Rate 33; Glucose 87 mg/dL (65-110); Phosphorus 4.1 mg/dL (2.5-4.5); Potassium 5.1 mmol/L (3.4-5.0); Sodium 139 mmol/L (137-145)
== END 2022-12-11 10:15 | disposition home or self-care (01) ==
PROVIDERS: PCP Family Medicine; Visit Provider Internal Medicine Nephrology
DX: N18.32 Chronic kidney disease, stage 3b (principal)
CPT/HCPCS: 36415; 80069

== ENCOUNTER 2023-03-10 09:42 | Outpatient (CLI) | payer OTHER, SELFPAY ==
[2023-03-10 10:12] LABS: Alanine Aminotransferase 21 U/L (6-35); Aspartate Amino Transferase 44 U/L (14-36)
== END 2023-03-10 09:43 | disposition home or self-care (01) ==
LOC: ANHLAB 09:44
PROVIDERS: PCP Family Medicine; Visit Provider Podiatrist Foot & Ankle Surgery
DX: B35.1 Tinea unguium (principal)
CPT/HCPCS: 36415; 84450; 84460

== ENCOUNTER 2023-05-06 11:29 | Outpatient (CLI) | payer OTHER, SELFPAY ==
[2023-05-06 11:55] LABS: Basophils Absolute Auto 0.1 K/mm3 (0.0-0.1); Basophils Percent Auto 0.6 % (0.2-1.2); Eosinophils Absolute Auto 0.5 K/mm3 (0-0.3); Eosinophils Percent Auto 5.2 % (0-4.4); Hematocrit 40.2 % (37.0-47.0); Hemoglobin 12.7 g/dL (12.0-15.0); Immature Granulocyte Absolute 0.03 K/mm3 (0.00-0.031); Immature Granulocyte Percent A 0.3 % (0-0.5); Lymphocytes Absolute Auto 2.64 K/mm3 (0.9-3.2); Lymphocytes Percent Auto 27.8 % (18.3-44.2); Mean Corpuscular HGB Conc 31.6 g/dl (32-36); Mean Corpuscular Volume 85.4 fl (80-100); Mean Platelet Volume 9.3 fl (7.4-10.4); Monocytes Absolute Auto 0.5 K/mm3 (0.1-0.6); Neutrophils Absolute Auto 5.8 K/mm3 (1.3-6.7); Neutrophils Percent Auto 61.1 % (45.5-73.1); Platelet Count Result 370 k/mm3 (150-375); Red Blood Count 4.71 M/mm3 (4.2-5.4); Red Cell Distribution Width 15.2 % (11.5-14.5); White Blood Count 9.5 K/mm3 (4.5-10.0)
[2023-05-06 16:40] LABS: Total Protein Urine Random 13 mg/dL
[2023-05-06 16:41] LABS: Alanine Aminotransferase 22 U/L (6-35); Albumin Level 4.4 g/dL (3.5-5.1); Alkaline Phosphatase 91 U/L (38-126); Anion Gap 10 mmol/L (8-16); Aspartate Amino Transferase 27 U/L (14-36); Bilirubin,Total 0.4 mg/dL (0.2-1.3); Blood Urea Nitrogen 22 mg/dL (7-17); CRP 1.1 mg/dL (<1.0); Calcium 9.1 mg/dL (8.4-10.2); Carbon Dioxide 24 mmol/L (22-30); Chloride 103 mmol/L (98-107); Estimated Glomerular Filt Rate 33; Glucose 89 mg/dL (65-110); Potassium 4.7 mmol/L (3.4-5.0); Sodium 137 mmol/L (137-145)
[2023-05-06 16:41] LABS: Ur Ttl Prot Creatinine Ratio 0.17 mg/mg (0-0.20)
[2023-05-06 16:42] LABS: Sodium Urine Random 111 meq/L
[2023-05-06 16:46] LABS: Parathyroid Intact 96.5 pg/mL (7.5-53.5)
[2023-05-06 16:51] LABS: Erythrocyte Sedimentation Rate 18 mm/hr (0-20)
[2023-05-06 20:46] LABS: Albumin Level 4.5 g/dL (3.5-5.1); Anion Gap 10 mmol/L (8-16); Blood Urea Nitrogen 22 mg/dL (7-17); Calcium 9.1 mg/dL (8.4-10.2); Carbon Dioxide 20 mmol/L (22-30); Chloride 105 mmol/L (98-107); Estimated Glomerular Filt Rate 35; Glucose 86 mg/dL (65-110); Potassium 4.7 mmol/L (3.4-5.0); Sodium 135 mmol/L (137-145)
== END 2023-05-06 11:30 | disposition home or self-care (01) ==
LOC: ANHLAB 11:31
PROVIDERS: Internal Medicine Nephrology; PCP Family Medicine; Visit Provider Internal Medicine Hematology & Oncology
DX: D75.838 Other thrombocytosis (principal); E61.1 Iron deficiency
CPT/HCPCS: 36415; 80053; 80069; 82570; 82728; 83970; 84156; 84300; 85025; 85652; 86140

== ENCOUNTER 2023-05-20 08:53 | Outpatient (CLI) | payer OTHER, SELFPAY ==
[2023-05-20 09:09] LABS: Basophils Absolute Auto 0.1 K/mm3 (0.0-0.1); Basophils Percent Auto 0.6 % (0.2-1.2); Eosinophils Absolute Auto 0.4 K/mm3 (0-0.3); Eosinophils Percent Auto 4.3 % (0-4.4); Hematocrit 39.1 % (37.0-47.0); Hemoglobin 12.4 g/dL (12.0-15.0); Immature Granulocyte Absolute 0.03 K/mm3 (0.00-0.031); Immature Granulocyte Percent A 0.3 % (0-0.5); Lymphocytes Absolute Auto 2.71 K/mm3 (0.9-3.2); Lymphocytes Percent Auto 29.8 % (18.3-44.2); Mean Corpuscular HGB Conc 31.7 g/dl (32-36); Mean Platelet Volume 9.1 fl (7.4-10.4); Monocytes Absolute Auto 0.5 K/mm3 (0.1-0.6); Monocytes Percent Auto 5.8 % (2.6-8.5); Neutrophils Absolute Auto 5.4 K/mm3 (1.3-6.7); Neutrophils Percent Auto 59.2 % (45.5-73.1); Platelet Count Result 415 k/mm3 (150-375); Red Cell Distribution Width 15.5 % (11.5-14.5); White Blood Count 9.1 K/mm3 (4.5-10.0)
[2023-05-28 15:13] LABS: Block/Specimen ID Not Given; CALR Exon 9 Mutation Not Detected (Not Detected); CSF3R Exon 14/17 Mutation Not Detected (Not Detected); JAK2 Exon 12 Mutation Not Detected (Not Detected); JAK2 V617F Mutation Not Detected (Not Detected); MPL Exon 10 Mutation Not Detected (Not Detected); Specimen Source Blood
== END 2023-05-20 08:54 | disposition home or self-care (01) ==
PROVIDERS: PCP Family Medicine; Visit Provider Internal Medicine Hematology & Oncology
DX: D75.838 Other thrombocytosis (principal)
CPT/HCPCS: 36415; 81219; 81270; 81279; 81339; 81479; 85025

== ENCOUNTER 2023-05-28 14:14 | Outpatient (CLI) | payer OTHER, SELFPAY ==
[2023-05-28 14:54] LABS: Alanine Aminotransferase 21 U/L (6-35); Aspartate Amino Transferase 46 U/L (14-36)
== END 2023-05-28 14:15 | disposition home or self-care (01) ==
LOC: ANHLAB 14:16
PROVIDERS: PCP Family Medicine; Visit Provider Podiatrist Foot & Ankle Surgery
DX: B35.1 Tinea unguium (principal)
CPT/HCPCS: 36415; 84450; 84460

== ENCOUNTER 2023-06-27 07:50 | Outpatient (CLI) | payer OTHER, SELFPAY ==
[2023-06-27 08:58] LABS: Alanine Aminotransferase 19 U/L (6-35); Albumin Level 4.2 g/dL (3.5-5.1); Anion Gap 9 mmol/L (8-16); Blood Urea Nitrogen 29 mg/dL (7-17); Calcium 9.1 mg/dL (8.4-10.2); Carbon Dioxide 22 mmol/L (22-30); Chloride 105 mmol/L (98-107); Estimated Glomerular Filt Rate 27; Glucose 116 mg/dL (65-110); Phosphorus 3.4 mg/dL (2.5-4.5); Potassium 4.4 mmol/L (3.4-5.0); Sodium 136 mmol/L (137-145)
[2023-06-27 09:09] LABS: LDL Cholesterol Direct 110 mg/dL
== END 2023-06-27 07:51 | disposition home or self-care (01) ==
LOC: ANHLAB 07:51
PROVIDERS: PCP Family Medicine; Visit Provider Internal Medicine Nephrology
DX: N18.32 Chronic kidney disease, stage 3b (principal); E78.5 Hyperlipidemia, unspecified
CPT/HCPCS: 36415; 80069; 83721; 84460

== ENCOUNTER 2023-07-03 07:53 | Outpatient (CLI) | payer OTHER, SELFPAY ==
[2023-07-03 08:39] LABS: Albumin Level 4.3 g/dL (3.5-5.1); Anion Gap 10 mmol/L (8-16); Blood Urea Nitrogen 23 mg/dL (7-17); Calcium 9.2 mg/dL (8.4-10.2); Carbon Dioxide 25 mmol/L (22-30); Chloride 105 mmol/L (98-107); Estimated Glomerular Filt Rate 31; Glucose 95 mg/dL (65-110); Potassium 4.8 mmol/L (3.4-5.0); Sodium 140 mmol/L (137-145)
[2023-07-03 10:35] LABS: Cortisol Random 4.21 ug/dL
[2023-07-06 16:09] LABS: Albumin 3.6 g/dL (3.8-4.8); Alpha 1 Globulin 0.4 g/dL (0.2-0.3); Beta 1 Globulin 0.6 g/dL (0.4-0.6); Protein, Total 7.1 g/dL (6.1-8.1)
[2023-07-06 16:44] LABS: Osmolality, Urine 652 mOsm/kg (50-1200)
== END 2023-07-03 07:54 | disposition home or self-care (01) ==
LOC: ANHLAB 07:55
PROVIDERS: PCP Family Medicine; Visit Provider Internal Medicine Nephrology
DX: E87.1 Hypo-osmolality and hyponatremia (principal)
CPT/HCPCS: 36415; 80069; 82533; 83930; 83935; 84155; 84165; 84443

== ENCOUNTER 2023-09-10 12:13 | Outpatient (CLI) | payer OTHER, SELFPAY ==
[2023-09-10 13:43] LABS: Alanine Aminotransferase 19 U/L (6-35); Aspartate Amino Transferase 29 U/L (14-36)
== END 2023-09-10 12:14 | disposition home or self-care (01) ==
PROVIDERS: PCP Family Medicine; Visit Provider Podiatrist Foot & Ankle Surgery
DX: B35.1 Tinea unguium (principal)
CPT/HCPCS: 36415; 84450; 84460

== ENCOUNTER 2023-10-02 11:02 | Outpatient (CLI) | payer OTHER, SELFPAY ==
--- NOTE | ~2023-10-02 | CT_ITS ---
CT Scan of the Chest without Contrast: Clinical Indication: Lung cancer screening, personal history of nicotine dependence Technique: Contiguous sections were acquired throughout the chest without intravenous contrast. Dose reduction technique was used on this scan by utilizing automated exposure control and iterative recon struction technique. The dose-length product (DLP) was 181.36 mGy-cm. COMPARISON: 08/02/2022 Findings: There is no evidence of any significant mediastinal, hilar or axillary lymphadenopathy. The mediastin al soft tissues appear normal. There is no evidence of pleural or pericardial effusion. The lungs are clear. No pulmonary nodules or infiltrates are noted. Images through the upper abdomen reveal no abnormalities. Impression: Lung RADS 1: Negative. 12 month follow-up screening CT advised. Reviewed, dictated and finalized at location . CONDITIONING SUPERVISOR Impression: Lung RADS 1: Negative. 12 month follow-up screening CT advised.
== END 2023-10-02 11:03 | disposition home or self-care (01) ==
LOC: ANHIMG 11:07
PROVIDERS: PCP Family Medicine; Visit Provider Family Medicine
DX: Z12.2 Encounter for screening for malignant neoplasm of respiratory organs (principal); Z87.891 Personal history of nicotine dependence
CPT/HCPCS: 71271

== ENCOUNTER 2023-11-27 07:43 | Outpatient (CLI) | payer OTHER, SELFPAY | END 2023-11-27 07:44 | disposition home or self-care (01) | LOC: ANHAUDIO 07:44 | PROVIDERS: PCP Family Medicine; Visit Provider Otolaryngology | DX: H93.19 Tinnitus, unspecified ear (principal); H90.3 Sensorineural hearing loss, bilateral | CPT/HCPCS: 92557; 92567 ==

== ENCOUNTER 2023-12-08 08:16 | Outpatient (CLI) | payer OTHER, SELFPAY ==
[2023-12-08 08:43] LABS: Hematocrit 40.5 % (37.0-47.0); Hemoglobin 12.4 g/dL (12.0-15.0); Mean Corpuscular HGB Conc 30.6 g/dl (32-36); Mean Corpuscular Hemoglobin 26.7 pg (26-34); Mean Corpuscular Volume 87.1 fl (80-100); Mean Platelet Volume 9.5 fl (7.4-10.4); Platelet Count Result 402 k/mm3 (150-375); Red Blood Count 4.65 M/mm3 (4.2-5.4); Red Cell Distribution Width 15.6 % (11.5-14.5); White Blood Count 9.4 K/mm3 (4.5-10.0)
[2023-12-08 08:50] LABS: Alanine Aminotransferase 19 U/L (6-35); Albumin Level 4.5 g/dL (3.5-5.1); Anion Gap 8 mmol/L (4-12); Blood Urea Nitrogen 18 mg/dL (7-17); Calcium 9.3 mg/dL (8.4-10.2); Carbon Dioxide 27 mmol/L (22-30); Chloride 104 mmol/L (98-107); Estimated Glomerular Filt Rate 35; Glucose 103 mg/dL (65-110); Phosphorus 3.9 mg/dL (2.5-4.5); Potassium 4.9 mmol/L (3.4-5.0); Sodium 139 mmol/L (137-145)
[2023-12-08 08:55] LABS: Creatinine Urine 77.8 mg/dL; Total Protein Urine Random 16 mg/dL; Ur Ttl Prot Creatinine Ratio 0.21 mg/mg (0-0.20)
[2023-12-08 09:01] LABS: Parathyroid Intact 69.3 pg/mL (7.5-53.5)
[2023-12-08 09:27] LABS: Vitamin D 25 Hydroxy 50.8 ng/mL
== END 2023-12-08 08:17 | disposition home or self-care (01) ==
LOC: ANHLAB 08:17
PROVIDERS: PCP Family Medicine; Visit Provider Internal Medicine Nephrology
DX: E78.5 Hyperlipidemia, unspecified (principal); N18.32 Chronic kidney disease, stage 3b
CPT/HCPCS: 36415; 80069; 82306; 82570; 83970; 84156; 84460; 85027

== ENCOUNTER 2024-01-28 09:08 | Outpatient (CLI) | payer OTHER, SELFPAY ==
[2024-01-28 10:40] LABS: Albumin Level 4.5 g/dL (3.5-5.1); Anion Gap 9 mmol/L (4-12); Blood Urea Nitrogen 29 mg/dL (7-17); Calcium 8.9 mg/dL (8.4-10.2); Carbon Dioxide 23 mmol/L (22-30); Chloride 104 mmol/L (98-107); Estimated Glomerular Filt Rate 29; Glucose 77 mg/dL (65-110); Phosphorus 3.5 mg/dL (2.5-4.5); Potassium 4.5 mmol/L (3.4-5.0); Sodium 136 mmol/L (137-145)
== END 2024-01-28 09:09 | disposition home or self-care (01) ==
LOC: ANHLAB 09:09
PROVIDERS: PCP Family Medicine; Visit Provider Internal Medicine Nephrology
DX: N18.32 Chronic kidney disease, stage 3b (principal)
CPT/HCPCS: 36415; 80069

== ENCOUNTER 2024-02-12 07:49 | Outpatient (CLI) | payer OTHER, SELFPAY ==
[2024-02-12 08:48] LABS: Alanine Aminotransferase 23 U/L (6-35); Albumin Level 4.6 g/dL (3.5-5.1); Anion Gap 11 mmol/L (4-12); Aspartate Amino Transferase 30 U/L (14-36); Blood Urea Nitrogen 21 mg/dL (7-17); Calcium 9.1 mg/dL (8.4-10.2); Carbon Dioxide 20 mmol/L (22-30); Chloride 107 mmol/L (98-107); Estimated Glomerular Filt Rate 30; Glucose 91 mg/dL (65-110); Phosphorus 3.8 mg/dL (2.5-4.5); Potassium 4.4 mmol/L (3.4-5.0); Sodium 138 mmol/L (137-145)
[2024-02-12 08:59] LABS: LDL Cholesterol Direct 96 mg/dL
[2024-02-13 03:20] LABS: Protein, Total 7.4 g/dL (6.1-8.1)
[2024-02-13 15:44] LABS: Abnormal Protein Band 1 0.2 g/dL (NONE DETECTED); Albumin 3.9 g/dL (3.8-4.8); Alpha 1 Globulin 0.4 g/dL (0.2-0.3); Beta 1 Globulin 0.5 g/dL (0.4-0.6); Gamma Globulin 1.1 g/dL (0.8-1.7)
== END 2024-02-12 07:50 | disposition home or self-care (01) ==
LOC: ANHLAB 07:50
PROVIDERS: PCP Family Medicine; Visit Provider Internal Medicine Nephrology
DX: E87.1 Hypo-osmolality and hyponatremia (principal); E78.5 Hyperlipidemia, unspecified
CPT/HCPCS: 36415; 80069; 82533; 83721; 84155; 84165; 84443; 84450; 84460

== ENCOUNTER 2024-03-02 07:46 | Outpatient (CLI) | payer OTHER, SELFPAY ==
[2024-03-03 15:15] LABS: Creat 24 Hr 0.88 g/24 h (0.50-2.15); Pro/Creat Ratio 204 mg/g creat (<150); Pro/Creat Ratio mg/mg 0.204 (<0.150); Protein,total, 24 Hr Ur 180 mg/24 h (<150)
[2024-03-05 13:04] LABS: Albumin 16 %
[2024-03-06 21:03] LABS: Immunofixation, Serum Normal pattern.
== END 2024-03-02 07:47 | disposition home or self-care (01) ==
PROVIDERS: PCP Family Medicine; Visit Provider Internal Medicine Nephrology
DX: N18.32 Chronic kidney disease, stage 3b (principal)
CPT/HCPCS: 36415; 86334; 86335

== ENCOUNTER 2024-06-02 07:43 | Outpatient (CLI) | payer OTHER, SELFPAY ==
[2024-06-02 08:14] LABS: Hematocrit 37.3 % (37.0-47.0); Hemoglobin 12.2 g/dL (12.0-15.0); Mean Corpuscular HGB Conc 32.7 g/dl (32-36); Mean Corpuscular Hemoglobin 29.1 pg (26-34); Mean Platelet Volume 9.6 fl (7.4-10.4); Platelet Count Result 366 k/mm3 (150-375); Red Blood Count 4.19 M/mm3 (4.2-5.4); Red Cell Distribution Width 15.5 % (11.5-14.5); White Blood Count 8.1 K/mm3 (4.5-10.0)
[2024-06-02 08:26] LABS: Albumin Level 4.3 g/dL (3.5-5.1); Anion Gap 9 mmol/L (4-12); Blood Urea Nitrogen 19 mg/dL (7-17); Calcium 8.8 mg/dL (8.4-10.2); Carbon Dioxide 24 mmol/L (22-30); Chloride 102 mmol/L (98-107); Estimated Glomerular Filt Rate 30; Glucose 78 mg/dL (65-110); Phosphorus 4.3 mg/dL (2.5-4.5); Potassium 4.1 mmol/L (3.4-5.0); Sodium 135 mmol/L (137-145)
[2024-06-02 09:25] LABS: Parathyroid Intact 57.9 pg/mL (14.5-75.2)
[2024-06-02 09:25] LABS: Creatinine Urine 124.1 mg/dL; Total Protein Urine Random 15 mg/dL; Ur Ttl Prot Creatinine Ratio 0.12 mg/mg (0-0.20)
[2024-06-02 09:40] LABS: Vitamin D 25 Hydroxy 90.8 ng/mL
== END 2024-06-02 07:44 | disposition home or self-care (01) ==
LOC: ANHLAB 07:44
PROVIDERS: PCP Family Medicine; Visit Provider Internal Medicine Nephrology
DX: E21.1 Secondary hyperparathyroidism, not elsewhere classified (principal); N18.32 Chronic kidney disease, stage 3b
CPT/HCPCS: 36415; 80069; 82306; 82570; 83970; 84156; 85027

== ENCOUNTER 2024-06-18 06:42 | Outpatient (CLI) | payer OTHER, SELFPAY ==
[2024-06-18 07:47] LABS: Hematocrit 38.5 % (37.0-47.0); Hemoglobin 12.6 g/dL (12.0-15.0); Mean Corpuscular HGB Conc 32.7 g/dl (32-36); Mean Corpuscular Hemoglobin 29.1 pg (26-34); Mean Corpuscular Volume 88.9 fl (80-100); Mean Platelet Volume 9.6 fl (7.4-10.4); Platelet Count Result 386 k/mm3 (150-375); Red Blood Count 4.33 M/mm3 (4.2-5.4); Red Cell Distribution Width 14.7 % (11.5-14.5); White Blood Count 8.4 K/mm3 (4.5-10.0)
[2024-06-18 08:18] LABS: Alanine Aminotransferase 19 U/L (6-35); Albumin Level 4.4 g/dL (3.5-5.1); Anion Gap 12 mmol/L (4-12); Blood Urea Nitrogen 21 mg/dL (7-17); Calcium 9.4 mg/dL (8.4-10.2); Carbon Dioxide 23 mmol/L (22-30); Chloride 102 mmol/L (98-107); Estimated Glomerular Filt Rate 33; Glucose 91 mg/dL (65-110); Phosphorus 4.2 mg/dL (2.5-4.5); Potassium 4.2 mmol/L (3.4-5.0); Sodium 137 mmol/L (137-145)
[2024-06-18 09:23] LABS: Parathyroid Intact 33.9 pg/mL (14.5-75.2)
[2024-06-18 13:08] LABS: Total Protein Urine Random 15 mg/dL; Ur Ttl Prot Creatinine Ratio 0.17 mg/mg (0-0.20)
== END 2024-06-18 06:43 | disposition home or self-care (01) ==
LOC: ANHLAB 06:43
PROVIDERS: PCP Family Medicine; Visit Provider Internal Medicine Nephrology
DX: R77.9 Abnormality of plasma protein, unspecified (principal); N18.32 Chronic kidney disease, stage 3b; E87.1 Hypo-osmolality and hyponatremia; E78.5 Hyperlipidemia, unspecified
CPT/HCPCS: 36415; 80069; 82533; 82570; 83970; 84156; 84460; 85027; 96372

== ENCOUNTER 2024-07-15 09:48 | Outpatient (CLI) | payer OTHER, SELFPAY ==
[2024-07-15 10:00] LABS: Basophils Absolute Auto 0.1 K/mm3 (0.0-0.1); Basophils Percent Auto 0.6 % (0.2-1.2); Eosinophils Absolute Auto 0.3 K/mm3 (0-0.3); Eosinophils Percent Auto 3.3 % (0-4.4); Hematocrit 39.8 % (37.0-47.0); Immature Granulocyte Absolute 0.03 K/mm3 (0.00-0.031); Immature Granulocyte Percent A 0.4 % (0-0.5); Lymphocytes Absolute Auto 2.46 K/mm3 (0.9-3.2); Lymphocytes Percent Auto 31.2 % (18.3-44.2); Mean Corpuscular HGB Conc 32.7 g/dl (32-36); Mean Corpuscular Hemoglobin 29.3 pg (26-34); Mean Corpuscular Volume 89.8 fl (80-100); Mean Platelet Volume 9.2 fl (7.4-10.4); Monocytes Absolute Auto 0.4 K/mm3 (0.1-0.6); Monocytes Percent Auto 5.6 % (2.6-8.5); Neutrophils Absolute Auto 4.7 K/mm3 (1.3-6.7); Neutrophils Percent Auto 58.9 % (45.5-73.1); Platelet Count Result 371 k/mm3 (150-375); Red Blood Count 4.43 M/mm3 (4.2-5.4); Red Cell Distribution Width 14.7 % (11.5-14.5); White Blood Count 7.9 K/mm3 (4.5-10.0)
[2024-07-15 10:05] LABS: Blood Urea Nitrogen 17 mg/dL (8-26); Carbon Dioxide 21 mmol/L (22-30); Chloride 102 mmol/L (98-109); Estimated Glomerular Filt Rate 25; Glucose 94 mg/dL (70-105); Ionized Calcium (POC) 1.14 mmol/L (1.11-1.31); Potassium 4.1 mmol/L (3.5-4.9); Sodium 137 mmol/L (138-146)
[2024-07-15 13:33] LABS: Alanine Aminotransferase 19 U/L (6-35); Albumin Level 4.3 g/dL (3.5-5.1); Alkaline Phosphatase 89 U/L (38-126); Anion Gap 7 mmol/L (4-12); Aspartate Amino Transferase 29 U/L (14-36); Bilirubin,Total 0.6 mg/dL (0.2-1.3); Blood Urea Nitrogen 17 mg/dL (7-17); Calcium 9.1 mg/dL (8.4-10.2); Carbon Dioxide 22 mmol/L (22-30); Chloride 104 mmol/L (98-107); Estimated Glomerular Filt Rate 29; Glucose 87 mg/dL (65-110); Potassium 4.2 mmol/L (3.4-5.0); Sodium 133 mmol/L (137-145)
== END 2024-07-15 09:49 | disposition home or self-care (01) ==
LOC: ANHLAB 09:49
PROVIDERS: PCP Family Medicine; Visit Provider Internal Medicine Hematology & Oncology
DX: D75.838 Other thrombocytosis (principal)
CPT/HCPCS: 36415; 80047; 80053; 85025

== ENCOUNTER 2024-07-27 08:50 | Outpatient (CLI) | payer OTHER, SELFPAY ==
--- NOTE | ~2024-07-27 | XR_ITS ---
EXAMINATION: XR bone survey comp/metastic DATE: 07/27/2024 09:36 INDICATION: Monoclonal gammopathy of undetermined significance. TECHNIQUE: 9 views of a skeletal survey were obtained. COMPARISON: Chest CT 10/02/2023 FINDINGS: The chest demonstrates clear lungs without pneumonia, pleural effusion, or pneumothorax. Th e heart size is normal. There are no dilated loops of bowel. There is no lytic lesion of bone to sugg est multiple myeloma. There is mild spondylosis. IMPRESSION: 1. No evidence of multiple myeloma. Reviewed, dictated and finalized at location A. [employer]
== END 2024-07-27 08:51 | disposition home or self-care (01) ==
PROVIDERS: PCP Family Medicine; Visit Provider Internal Medicine Hematology & Oncology
DX: D47.2 Monoclonal gammopathy (principal)
CPT/HCPCS: 77075

== ENCOUNTER 2024-08-04 08:33 | Outpatient (CLI) | payer OTHER, SELFPAY ==
[2024-08-04 13:46] LABS: Immunoglobulin A 332 mg/dL (70-400); Immunoglobulin G 960 mg/dL (700-1600); Immunoglobulin M 91 mg/dL (40-230)
[2024-08-05 05:58] LABS: Protein, Total 6.8 g/dL (6.1-8.1)
[2024-08-05 11:38] LABS: Kappa\\Lambda Light Chains 1.35 (0.26-1.65); Lambda Light Chain 30.7 mg/L (5.7-26.3)
[2024-08-13 13:32] LABS: Albumin 3.8 g/dL (3.8-4.8); Alpha 1 Globulin 0.3 g/dL (0.2-0.3); Alpha 2 Globulin 0.9 g/dL (0.5-0.9); Beta 1 Globulin 0.6 g/dL (0.4-0.6); Gamma Globulin 0.9 g/dL (0.8-1.7)
== END 2024-08-04 08:34 | disposition home or self-care (01) ==
LOC: ANHLAB 08:34
PROVIDERS: PCP Family Medicine; Visit Provider Internal Medicine Hematology & Oncology
DX: D47.2 Monoclonal gammopathy (principal)
CPT/HCPCS: 36415; 82784; 83883; 84155; 84165

== ENCOUNTER 2024-10-22 13:15 | Outpatient (CLI) | payer OTHER, SELFPAY | END 2024-10-22 13:16 | disposition home or self-care (01) | LOC: MICIMG 13:18 | PROVIDERS: PCP Student in an Organized Health Care Education/Training Program; Visit Provider Physician Assistant | DX: Z12.31 Encounter for screening mammogram for malignant neoplasm of breast (principal) | CPT/HCPCS: 77063; 77067 ==

== ENCOUNTER 2024-12-07 08:48 | Outpatient (CLI) | payer OTHER, SELFPAY ==
--- OUTSIDE RECORDS SUMMARY | 2024-12-07 09:09 | XMS_ITS | Clinical Summary ---
Author Organization [facility] Address [address] [place] [id number] Care Team Providers Care Hand Therapist Name Role Phone Michael Reed DO Primary Care Provider [phone] Social History Tobacco Use Types Packs/Day Years Used Date Smoking Tobacco: Never Assessed Comments Unknown Sex and Gender Information Value Date Recorded Sex Assigned at Not on file Legal Sex Female 7:30 PM CDT Gender Identity Not on file Sexual Orientation Not on file Last Filed Vital Signs Vital Sign Reading Time Taken Comments Blood Pressure 162/80 04/10/2017 8:56 AM CDT Pulse 68 10/10/2016 10:03 AM 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 Temperature - - Respiratory Rate - - Oxygen Saturation - - Inhaled Oxygen Concentration - - Weight 94.8 kg (209 lb) 04/10/2017 8:56 AM CDT Height 161.9 cm (5' 3.75 ) 04/10/2017 8:56 AM CD T Body Mass Index 36.15 04/10/2017 8:56 AM CDT Plan of Treatment Health Maintenance Due Date Last Done Comments Cervical Cancer Screening Pa p Smear (Age 30 to 64) Every 3 Years 1961 Annual Physical 1964 Hepatitis C 1979 Cervical Cancer Screening Pa p with HPV Testing (Age 30 to 64) Every 5 Years 1991 Cervical Cancer Screening with HPV 1991 Mammogram Screening 2001 Zoster Vaccines (1 of 2) 2011 DTaP, Tdap and Td Vaccines ( 2 - Td or Tdap) 10/12/2020 10/12/2010 COVID-19 Vaccine (2023-2 5 season) 2024 Colorectal Cancer Screening Colonoscopy (10 Years) 08/25/2024 08/25/2014 RSV Immunization or 60+ Years (1 - 1-dose 75+ series) 2036 Meningococcal B Vaccine Aged Out No l onger eligible based on patient's age to complete this topic Meningococcal Vaccine Aged Out No jonathan toy eligible based on patient's age to complete this topic Pneumococcal Vaccine: Pediat rics (0 to 5 Years) and At-Risk Patients (6 to 49 Years) Aged Out No longer eligi ble based on patient's age to complete this topic RSV Immunizations Under 20 Months Aged Out No longer eligible based on patient's age to complete this topic Procedures Procedure Name Priority Date/Time Associated Diagnosis Comments COLONOSCOPY Routine 08/25/2014 12:00 AM 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 from Last 3 Months or Most Recently Relevant to Health Maintenance Results * Colonoscopy (08/25/2014 12:00 AM 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) 08/25/2014 08/25/2014 Narrative TOUCHWORKS TO EPIC CONVERSION - 08/25/2014 12:00 AM 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 Documented hx of procedure Procedure Note , Generic ConversionMD - 11/12/2018 Documented hx of procedure us Generic Conversion Md OTT GI PROCEDURE ORDERABLES Final Result Performing Organization Address City/State/[facility] Co de Phone Number TOUCHWORKS TO EPIC CONVERSION from Last 3 Months or Most Recently Relevant to Health Maintenance Insurance [facility] [place] [address] Care Teams Hand Therapist Relationship Specialty Start Date End Date Michael Reed DO [address] [place] [address] PCP - General 10/31/16
--- OUTSIDE RECORDS SUMMARY | 2024-12-07 09:09 | XMS_ITS | Encounter Summary ---
Author Organization [facility] Address [address] [place] [id number] Phone Care Team Providers Care Edger Technician Name Role Phone Naomy Brar MD Primary Care Provider [phone] Encounter Details Date Type Department Care Team (Late st Contact Info) Description [facility] [address] [facility], [address] [place] [id number] Hakeem Amor MD [address] [facility] [facility] [place] [address] Social History Tobacco Use Types Packs/Day Years Used Date Smoking Tobacco: Former Smokeless Tobacco: Never Alcohol Use Standard Drinks/Week Comments Not Currently 0 (1 standard drink = 0.6 oz pur e alcohol) Comments Unknown Sex and Gender Information Value Date Recorded Sex Assigned at Not on file Legal Sex Female 12:55 PM MST Gender Identity Not on file Sexual Orientation Not on file documented as of this encounter Plan of Treatment Not on file documented as of this encounter Visit Diagnoses Not on filedocumented in this encounter Care Teams Edger Technician Relationship Specialty Start Date End Date Naomy Brar MD [address] [place] [address] PCP - General Internal Medicine 10/14/19 documented as of this encounter
--- OUTSIDE RECORDS SUMMARY | 2024-12-07 09:09 | XMS_ITS | Clinical Summary ---
Author Organization [facility] Address [address] [place] [address] Care Team Providers Care Coloring Room Worker Name Role Phone Unavailable Primary Care Provider Unavailabl e Source Comments [facility],non-owned Affiliates and Associated Physician Practices is amultiple site organization consisting of ambulatory clinics and hospital sitesin [place], [place], [place] and [place]. This disclosure is being madepursuant to the Care Everywhere program and may not contain all information available regarding this patient. Last updated 18.[facility] epacube Allergies No known active allergies Medications * Be aware that medications may not be up to date on this document. Alwaysverify current medications with the patient. VESICARE 10 MG tablet Take 10 mg by mouth once daily 6 Active levothyroxine (SYNTHROID) 75 MCG tablet Take 75 mcg by mouth daily before breakfast 6 Active lovastatin (MEVACOR) 40 MG tablet Take 40 mg by mouth at bedtime 6 Active umeclidinium (INCRUSE ELLIPTA) 62.5 MCG/INH inhaler Inhale 1 puff by mouth once daily Active esomeprazole (NEXIUM) 40 MG capsule Take 40 mg by mouth once daily as needed 7 Active vitamin D, ergocalciferol, (DRISDOL) 1.25 MG (05213 UT) capsule Take 50,000 Units by mouth every 7 days 9 Active LORazepam (ATIVAN) 1 MG tablet Take 0.5 mg by mouth as needed 1 Active buPROPion SR 12hr (WELLBUTRIN-SR) 150 MG tablet Take 150 mg by mouth 2 times daily 1 Active olmesartan (BENICAR) 20 MG tablet Take 20 mg by mouth once daily 1 Active ferrous sulfate EC (FERROUS SULFATE) 324 (65 Fe) MG tablet Take 1 tablet by mouth every Friday, Friday & Friday 1 Active PARoxetine (PAXIL) 20 MG tablet Take 20 mg by mouth once daily 1 Active Active Problems Problem Noted Date Diagnosed Date Chronic kidney disease, stage III (moderate) Ganglion cyst 01/20/2019 Prediabetes 10/21/2018 Major depressive disorder, recurrent, mild 10/07 Essential (primary) hypertension 08/03/2018 GERD (gastroesophageal reflux disease) Hypothyroid Elevated cholesterol COPD (chronic obstructive pulmonary disease) Arthritis Depression OAB (overactive bladder) Immunizations Immunization Administration Dates Next Due [employer] primary monoval ent 12+ yr 0.3mL Purple cap 06/13/2021,11/14/2020,10/24/2020 INFLUENZA VACCINE 06/13/2021 INFLUENZA VACCINE, QUADR. (F LUZONE; FLULAVAL; FLUARIX; AFLURIA QUADRIVALENT; 6MO+), 0.5 ML (IIV4) 05/30/2020,06/16/2019 Family History Medical History Relation Name Comments Cancer Father bone Diabetes Mother Hypertension Mother Cancer - Breast Paternal Grandmother Relation Name Status Comments Father Mother Paternal Grandmother Social History Tobacco Use Types Packs/Day Years Used Date Smoking Tobacco: Former Cigarettes Q uit: 2014 Smokeless Tobacco: Never Alcohol Use Standard Drinks/Week Comments Yes 0 (1 standard drink = 0.6 oz pur e alcohol) Comments No Sex and Gender Information Value Date Recorded Sex Assigned at Not on file Legal Sex Female 5:49 AM CONVENTIONAL MORTGAGE UNDERWRITER Gender Identity Not on file Sexual Orientation Not on file Last Filed Vital Signs Vital Sign Reading Time Taken Comments Blood Pressure 129/67 07/03/2021 10:36 AM CONVENTIONAL MORTGAGE UNDERWRITER Pulse 78 07/03/2021 10:36 AM CONVENTIONAL MORTGAGE UNDERWRITER Temperature 36.8 C (98.3 F) 07/31/2017 3:36 PM CONVENTIONAL MORTGAGE UNDERWRITER Respiratory Rate 18 07/31/2017 3:36 PM CONVENTIONAL MORTGAGE UNDERWRITER Oxygen Saturation 94% 07/31/2017 3:36 PM CONVENTIONAL MORTGAGE UNDERWRITER Inhaled Oxygen Concentration - - Weight 97.5 kg (215 lb) 07/03/2021 10:36 AM CONVENTIONAL MORTGAGE UNDERWRITER Height 162.6 cm (5' 4 ) 07/03/2021 10:36 AM CONVENTIONAL MORTGAGE UNDERWRITER Body Mass Index 36.9 07/03/2021 10:36 AM CONVENTIONAL MORTGAGE UNDERWRITER Plan of Treatment Health Maintenance Due Date Last Done Comments COLOGUARD (AGES 45-75) - COLON CA SCREENING 1961 COLON MONITORING 1961 COLONOSCOPY - COLON CA SCREENING 1961 CT COLONOGRAPHY - COLON CA SCREENING 1961 Colorectal Cancer Screening 1961 FIT - COLON CA SCREENING 1961 FLEX SIG - COLON CA SCREENING 1961 HIV SCREENING 1976 HEPATITIS C SCREENING 10/13/1979 DTAP/TDAP/TD VACCINES (1 - Tdap) 1980 PNEUMOCOCCAL VACCINE 50+ (1 of 2 - PCV) 1980 ZOSTER VACCINE (1 of 2) 2011 SCREENING FOR DIABETES 07/03/2021 Respiratory Syncytial Virus (RSV) Vaccine Pt: or over 60 yrs (1 - Risk 60-74 years 1-dose series) 2021 MAMMOGRAM 08/31/2023 08/31/2021, 07/25, 07/29/2018, Additional history exists COVID-19 VACCINE ( season) 2024 06/13/2021, 11/14/2020, 10/24/2020 DEPRESSION SCREENING 08/25/2024 INFLUENZA VACCINE (Season Ended) 2025 06/13/2021, 05/30/2020, 06/16/2019 PAP with HPV 07/03/2026 07/03/2021, 06/26 (Done Outside Per Report), 07/18/2015 HEPATITIS B VACCINE Aged Out No longe r eligible based on patient's age to complete this topic HIB VACCINE Aged Out No longer eligi ble based on patient's age to complete this topic HPV VACCINE Aged Out No longer eligi ble based on patient's age to complete this topic MENINGOCOCCAL (Group B) VACCINE SHARED DECISION-MAKING Aged Out No longer eligible based on patient's age to complete this topic MENINGOCOCCAL GROUPS A/C/Y/W VACCINE Aged Out No longer eligible based on patient's age to complete this topic Procedures Procedure Name Priority Date/Time Associated Diagnosis Comments MAMMO BILAT SCREENING W JEFFRY Routine 08/31/2021 12:04 PM CONVENTIONAL MORTGAGE UNDERWRITER Encounter for screening mammogram for malignant neoplasm of breast PAP IG LB+HPV APTIMA Routine 07/03/2021 11:30 AM CONVENTIONAL MORTGAGE UNDERWRITER Well woman exam from Last 3 Months or Most Recently Relevant to Health Maintenance Results * MAMMO BILAT SCREENING W JEFFRY (08/31/2021 12:04 PM CONVENTIONAL MORTGAGE UNDERWRITER) Anatomical Region Laterality Modality Breast Bilateral Mammography 08/31/2021 12:4 7 PM CONVENTIONAL MORTGAGE UNDERWRITER Impressions 08/31/2021 12:52 PM CONVENTIONAL MORTGAGE UNDERWRITER No mammographic evidence of malignancy in either breast. ASSESSMENT: BIRADS Category 1: Negative mammogram. RECOMMENDATION: Bilateral screening mammogram in one year. Thank you for allowing us to participate in the care of your patient. [facility] Breast [facility] utilizes [employer] as a reminder system to notify patients of their next recommended mammogram. *Reading Radiologist: Genoveva Stiles on 08/31/2021 at 12:52 PM Narrative 08/31/2021 12:52 PM CONVENTIONAL MORTGAGE UNDERWRITER EXAMINATION: Digital screening mammogram. Low-dose full-field digital breast tomosynthesis examination was performed with synthetic 2D images and 3D acquisitions. Computer assisted detection not available. DATE: 08/31/2021 11:35 AM PRIOR: 08/04/2019 and prior mammograms dating back to 2014. BREAST PARENCHYMAL DENSITY: There are scattered areas of fibroglandular density. FINDINGS: No suspicious masses, areas of architectural distortion or microcalcifications are evident on synthetic 2D mammogram or tomosynthesis images. There has been no significant interval change since the prior examination. us Jaylene Eaton MD MAMMO ORDERABLES Final Resu lt * PAP IG LB+HPV APTIMA (07/03/2021 11:30 AM CONVENTIONAL MORTGAGE UNDERWRITER) Diagnosis [facility] ACCOUNT BILL Comment:NEGATIVE FOR INTRAEP ITHELIAL LESION OR MALIGNANCY. Specimen Adequacy [facility] ACCOUNT BILL Comment: Satisfactory for evaluation. Endocervical and/or squamous metaplastic cells (endocervical component) are present. Clinician Provided ICD10 [facility] ACCOUNT BILL Comment:Z01.419 Performed by [facility] ACCOUNT BILL Comment:Manny Chairez echnologist (ASCP) Comment . [facility] ACCOUNT BILL Note [facility] ACCOUNT BILL Comment: The Pap smear is a screening test designed to aid in the detection of premalignant and malignant conditions of the uterine cervix. It is not a diagnostic procedure and should not be used as the sole means of detecting cervical cancer. Both false-positive and false-negative reports do occur. . IGLBP CPT Code Automation [facility] ACCOUNT BILL Comment: This liquid based ThinPrep(R) pap test was screened with the use of an image guided system. Human papillomavirus Aptima Negative Negative [facility] ACCOUNT BILL Comment: This nucleic acid amplification test detects fourteen high-risk HPV types (16,18,31,33,35,39,45,51,52,56,58,59,66,68) without differentiation. Pathology/Cytolog y PART OF UTERINE CERVIX / Unknown 07/03/2021 11:30 AM CONVENTIONAL MORTGAGE UNDERWRITER 07/04/2021 Narrative [facility] ACCOUNT BILL - 07/05/2021 11:06 PM CONVENTIONAL MORTGAGE UNDERWRITER No. of containers..01 ThinPrep Vial Resulting Agency Comment Lab Testing performed at: [address] [id number] Jaylene Eaton MD LAB - PATHOLOGY/CYTOLOGY OR DERABLES Final Result [facility] ACCOUNT BILL [address] [place] [address] from Last 3 Months or Most Recently Relevant to Health Maintenance Insurance [facility]
--- OUTSIDE RECORDS SUMMARY | 2024-12-07 09:09 | XMS_ITS | CONTINUITY OF CARE DOCUMENT ---
Author Name marco antonio bernard Address Unknown Organization [facility] Address [address] [place] [address] [address] [place] [address] Phone [phone] Care Team Providers Care Shower Attendant Name Role Phone Markell OTT, Brooks Unavailable INSURANCE PROVIDERS Payer name Policy type / Coverage type [employer] Workers' compensation [facility] claim [id number]
--- OUTSIDE RECORDS SUMMARY | 2024-12-07 09:09 | XMS_ITS | Encounter Summary ---
Author Organization [facility] Address [address] [place] [address] Care Team Providers Care Vehicle Controls Engineer Name Role Phone Unavailable Primary Care Provider Unavailabl e Encounter Details Date Type Department Care Team (Late st Contact Info) Description 10/07/2022 Lab Requisition [facility] DermPath Lab [address], [facility] [place] [address] Live Conner MD [address] [place] [address] Social History Tobacco Use Types Packs/Day Years Used Date Smoking Tobacco: Former Cigarettes Q uit: 2013 Smokeless Tobacco: Never Alcohol Use Standard Drinks/Week Comments Yes 0 (1 standard drink = 0.6 oz pur e alcohol) Comments No Sex and Gender Information Value Date Recorded Sex Assigned at Not on file Legal Sex Female 5:49 AM SUPERVISOR BLOOD Gender Identity Not on file Sexual Orientation Not on file documented as of this encounter Plan of Treatment Not on file documented as of this encounter Procedures Procedure Name Priority Date/Time Associated Diagnosis Comments DERMATOPATHOLOGY Routine 10/03/2022 12:0 0 AM SUPERVISOR BLOOD documented in this encounter Results * DERMATOPATHOLOGY (10/03/2022 12:00 AM SUPERVISOR BLOOD) Case Report Dermatopathology Report Case: [id number] Authorizing Provider: Live Conner MD Collected: 10/03/2022 12:00 AM Ordering Location: [facility] DermPath Lab Received: 10/07/2022 06:37 AM Pathologist: Alisha Staples MD Specimen: Skin, nasal bridge 3 4:[address] [facility] DERMATOPATHOLOGY LABORATORY Final Diagnosis Specimen A. SKIN, nasal bridge: SQUAMOUS CELL CARCINOMA, MODERATELY TO WELL DIFFERENTIATED (C44.321) NOT PRESENT AT SAMPLED MARGIN ULCER WITH SUPERFICIAL DERMAL NECROSIS (L98.499) DERMAL SCAR (L90.5) (see microscopic description) 3 4:[address] [facility] DERMATOPATHOLOGY LABORATORY Clinical History SCCA. Check Margins. Path# [id number] 3 4:[address] [facility] DERMATOPATHOLOGY LABORATORY Gross Description Specimen A: Received is one formalin filled container labeled with the patient's name and designated nasal bridge. The specimen consists of a 17x9x3 mm piece of skin. The margin is inked green. The specimen is bisected lengthwise and submitted in 1 cassette. Jar 0. 3 4:[address] [facility] DERMATOPATHOLOGY LABORATORY Microscopic Description Specimen A. SKIN, nasal bridge: There are nests of squamous epithelial cells which arise from the epidermis and extend into the dermis. Some of the nests have only focal central keratinization and rare horn danielle formation. This lesion is not present at the sampled margin of the specimen. Pancytokeratin/S100 dual immunostain does not reveal perineural invasion. There is an ulcer, beneath which there are vascular proliferation, fibroblasts, and an edematous stroma. There are fibroblasts and collagen bundles oriented parallel to the skin surface with elongated blood vessels, some of which are oriented perpendicular to the skin surface. 3 4:[address] [facility] DERMATOPATHOLOGY LABORATORY Disclaimer An external and internal positive and negative controls are appropriate for the histochemical, immunohistochemical and immunofluorescence stain(s) in this case (if any), except where stated explicitly. The performance characteristics of the stain(s) cited in this report were developed and its performance characteristic determined by the Dermatopathology Laboratory at [facility], directed by Dr. Shruthi Gilliland. These tests need not be, and therefore are not, approved by the [place] Food and Drug Administration. The tests are used for clinical purposes. Billing Codes Specimen Charges Stain Charges 99464 1 35049 1 3 4:[address] [facility] DERMATOPATHOLOGY LABORATORY Embedded Images 3 4:21 PM SUPERVISOR BLOOD DERMATOPATHOLOGY LABORATORY Pathology/Cytolog y TISSUE SPECIMEN FROM SKIN / Unknown 10/03/2022 10/07/2022 6:37 AM SUPERVISOR BLOOD us Live Conner MD LAB - PATHOLOGY/CYTOLOGY ORDER ÁNGEL Final Result DERMATOPATHOLOGY LABORATORY [facility] - Department of Dermatology [facility] Specialized Medicine [address] [place] [address], [address] [phone] documented in this encounter Visit Diagnoses Not on filedocumented in this encounter
--- OUTSIDE RECORDS SUMMARY | 2024-12-07 09:09 | XMS_ITS | Encounter Summary ---
Author Organization [facility] Address [address] [place] [address] Care Team Providers Care Clinical Laboratory Aide Name Role Phone Michael Reed DO Primary Care Provider [phone] Encounter Details Date Type Department Care Team (Latest Contact Info) Description 06/30/2018 Abstract [facility] , Eris Foss MD Social History Tobacco Use Types Packs/Day Years [...] on filedocumented in this encounter Care Teams Clinical Laboratory Aide Relationship Specialty Start Date End Date Michael Reed DO [address] [place] [id number] PCP - General 10/31/16 documented as of this encounter
--- OUTSIDE RECORDS SUMMARY | 2024-12-07 09:09 | XMS_ITS | Encounter Summary ---
Author Organization [facility] Address [address] [facility] [place] [address] Care Team Providers Care Control Technician Name Role Phone Unavailable Primary Care Provider Unavailabl e Encounter Details Date Type Department Care Team (Late st Contact Info) Description 10/25/2021 Lab Requisition [facility] DermPath Lab [address], [facility] [place] [address] Live Conner MD [address] [place] [address] Social History Tobacco Use Types Packs/Day Years Used Date Smoking Tobacco: Former Cigarettes Q uit: 2014 Smokeless Tobacco: Never Alcohol Use Standard Drinks/Week Comments Yes 0 (1 standard drink = 0.6 oz pur e alcohol) Comments No Sex and Gender Information Value Date Recorded Sex Assigned at Not on file Legal Sex Female 5:49 AM MAILING MACHINE ASSISTANT Gender Identity Not on file Sexual Orientation Not on file documented as of this encounter Plan of Treatment Not on file documented as of this encounter Procedures Procedure Name Priority Date/Time Associated Diagnosis Comments DERMATOPATHOLOGY Routine 10/24/2021 12:0 0 AM MAILING MACHINE ASSISTANT documented in this encounter Results * DERMATOPATHOLOGY (10/24/2021 12:00 AM MAILING MACHINE ASSISTANT) Case Report Dermatopathology Report Case: [id number] Authorizing Provider: Live Conner MD Collected: 10/24/2021 12:00 AM Ordering Location: [facility] DermPath Lab Received: 10/25/2021 03:19 PM Pathologist: Yael Lama MD Specimen: Skin, mid forehead 2 3:49 PM [facility] DERMATOPATHOLOGY LABORATORY Final Diagnosis Specimen A. SKIN, mid forehead: SQUAMOUS CELL CARCINOMA IN SITU (WANG'S DISEASE) (D04.39) (see microscopic description) 2 3:49 PM [facility] DERMATOPATHOLOGY LABORATORY Clinical History AK vs SCCA in situ. Path # [id number]. 2 3:49 PM [facility] DERMATOPATHOLOGY LABORATORY Gross Description Specimen A: Received is one formalin filled container labeled with the patient's name and designated mid forehead. The specimen consists of a shave biopsy measuring [id number]. Jar 0. 2 3:49 PM [facility] DERMATOPATHOLOGY LABORATORY Microscopic Description Specimen A. SKIN, mid forehead: The epidermis shows parakeratosis, full thickness disorderly maturation of keratinocytes, mitoses at different levels, and dyskeratotic cells. Additional deeper sections were obtained and reviewed. 2 3:49 PM [facility] DERMATOPATHOLOGY LABORATORY Disclaimer An external and internal positive and negative controls are appropriate for the histochemical, immunohistochemical and immunofluorescence stain(s) in this case (if any), except where stated explicitly. The performance characteristics of the stain(s) cited in this report were developed and its performance characteristic determined by the Dermatopathology Laboratory at [facility], directed by Dr. Shruthi Gilliland. These tests need not be, and therefore are not, approved by the [place] Food and Drug Administration. The tests are used for clinical purposes. Billing Codes Specimen Charges Stain Charges 07625 1 2 3:49 PM MAILING MACHINE ASSISTANT DERMATOPATHOLOGY LABORATORY Embedded Images 2 3:49 PM [facility] DERMATOPATHOLOGY LABORATORY Pathology/Cytolog y TISSUE SPECIMEN FROM SKIN / Unknown 10/24/2021 10/25/2021 3:19 PM MAILING MACHINE ASSISTANT us Live Conner MD LAB - PATHOLOGY/CYTOLOGY ORDER ÁNGEL Final Result DERMATOPATHOLOGY LABORATORY [facility] - Department of Dermatology [address], [address] Floor [place], [place] [id number] [place] [address] documented in this encounter Visit Diagnoses Not on filedocumented in this encounter
--- OUTSIDE RECORDS SUMMARY | 2024-12-07 09:09 | XMS_ITS | Clinical Summary ---
Author Organization [facility] Dominick Morales Address [address] [place] [address] Care Team Providers Care Zipper Sewing Machine Operator Name Role Phone Naomy Brar MD Primary Care Provider [phone] Allergies No known active allergies Medications buPROPion HCL (WELLBUTRIN SR) 150 mg Sustained Release 12 hour tablet Take 150 mg by mouth 2 times daily. 04/27/2021 Active pravastatin (PRAVACHOL) 40 mg tablet Take 80 mg by mouth daily. 11/28/2021 Active levothyroxine 75 mcg tablet Take 75 mcg by mouth daily in the morning. Active olmesartan (BENICAR) 20 mg tablet Take 20 mg by mouth daily. Active oxyBUTYnin (DITROPAN XL) 10 mg Extended Release 24 hour tablet Take 10 mg by mouth daily. Active esomeprazole (NexIUM) 20 mg Capsule, Delayed Release(E.C.) Take 40 mg by mouth daily before breakfast. Active cholecalciferol 1,250 mcg (50,000 unit) Capsule Take 50,000 Units by mouth daily. Active dapagliflozin propanediol (Farxiga) 10 mg Tablet Take 10 mg by mouth daily. Active aspirin (ECOTRIN EC) 81 mg Tablet, Delayed Release (E.C.) Take 81 mg by mouth daily. Active terbinafine HCL (LamISIL) 250 mg tablet Take 250 mg by mouth daily. Active Active Problems No known active problems Encounters Date Type Department Care Team Description 11/23/2024 External Device Data ST[facility] ABSTRACTION Provider, Abstract 11/10/2024 External Device Data STL ABSTRACTION Provider, Abstract 11/03/2024 External Device Data STL ABSTRACTION Provider, Abstract 11/02/2024 External Device Data STL ABSTRACTION Provider, Abstract 11/01/2024 External Device Data ST[facility] ABSTRACTION Provider, Abstract 10/30/2024 External Device Data STL ABSTRACTION Provider, Abstract 10/30/2024 External Device Data STL ABSTRACTION Provider, Abstract 10/27/2024 External Device Data STL ABSTRACTION Provider, Abstract 10/13/2024 External Device Data STL ABSTRACTION Provider, Abstract 09/16/2024 External Device Data STL ABSTRACTION Provider, Abstract from Last 3 Months Family History Medical History Relation Name Comments Diabetes Brother 1 No Known Problems Brother 2 No Known Problems Daughter Bone Cancer Father Diabetes Mother No Known Problems Sister 1 No Known Problems Sister 2 Lung Cancer Sister 3 No Known Problems Son 1 No Known Problems Son 2 No Known Problems Son 3 Relation Name Status Comments Brother 1 Brother 2 Alive Daughter Alive Father Mother Sister 1 Alive Sister 2 Alive Sister 3 Son 1 Alive Son 2 Alive Son 3 Alive Social History Tobacco Use Types Packs/Day Years Used Date Smoking Tobacco: Former Cigarettes 1 39 1 974 - 2012 Smokeless Tobacco: Never Alcohol Use Standard Drinks/Week Comments Yes 1 (1 standard drink = 0.6 oz pur e alcohol) Comments No Sex and Gender Information Value Date Recorded Sex Assigned at Not on file Legal Sex Female 8:21 AM CDT Gender Identity Not on file Sexual Orientation Not on file Last Filed Vital Signs Vital Sign Reading Time Taken Comments Blood Pressure 103/63 07/15/2024 10:38 AM TIRE RETREADER Pulse 70 07/15/2024 10:38 AM TIRE RETREADER Temperature 36.3 C (97.3 F) 07/15/2024 10:38 AM TIRE RETREADER Respiratory Rate 16 07/15/2024 10:3 8 AM TIRE RETREADER Oxygen Saturation 95% 07/15/2024 10: 38 AM TIRE RETREADER Inhaled Oxygen Concentration - - Weight 84.8 kg (187 lb) 07/15/2024 10:3 8 AM TIRE RETREADER Patient is trying to lose weight Height 161.3 cm (5' 3.5 ) 05/06/2023 10 :23 AM CDT Body Mass Index 32.61 05/06/2023 10:23 AM CDT Plan of Treatment Upcoming Encounters Date Type Department Care Team (Late st Contact Info) Description 09/07/2025 3:30 PM TIRE RETREADER Office Visit [facility] Oncology and Hematology - [place] [address] [place] [address] Cooper Quigley MD [address] [facility] [address] [place] [address] Health Maintenance Due Date Last Done Comments Pre-Diabetes and Diabetes Screening 1961 DTAP/TDAP/TD VACCINES (1 - Tdap) 1980 HPV/Cotest (21-29) 1982 CERVICAL CANCER SCREENING 1991 HPV/Cotest (30-65) 1991 PAP SMEAR 1991 FIT-DNA Q 3 years 2006 FIT/FOBT Q 1 year 2006 Flex Sig/CT Colonography Q 5 years 2006 Lung Cancer Screening 2011 ZOSTER VACCINE (1 of 2) 2011 RSV VACCINE (60+ or ) (1 - Risk 60-74 years 1-dose series) 2021 BREAST CANCER SCREENING 08/31/2022 08/31/2021, 08/31 INFLUENZA VACCINE (#1) 2024 05/30/2020, 2018 COVID-19 Vaccine (4 - 2023-2 5 season) 2024 06/13/2021, 11/14/2020, 10/24/2020 COLORECTAL SCREENING 08/25/2024 08/25/2014 Colorectal Cancer Screening 08/25/2024 Preventative Visit- Commercial 08/25/2024 1 09/02/2020, 08/31/2019, 08/26/2018, Additional history exists Insurance [employer] [facility] [id number] Care Teams Zipper Sewing Machine Operator Relationship Specialty Start Date End Date Naomy Brar MD PCP - General Family Practice 12/04/22
--- OUTSIDE RECORDS SUMMARY | 2024-12-07 09:09 | XMS_ITS | Encounter Summary ---
Author Organization [facility] Address [address] [place] [address] Care Team Providers Care Contract Writer Name Role Phone Unavailable Primary Care Provider Unavailabl e Encounter Details Date Type Department Care Team (Late st Contact Info) Description 09/24/2022 Lab Requisition [facility] DermPath Lab [address] [facility] [place] [address] Live Conner MD [address] [place] [address] Social History Tobacco Use Types Packs/Day Years Used Date Smoking Tobacco: Former Cigarettes Q uit: 2013 Smokeless Tobacco: Never Alcohol Use Standard Drinks/Week Comments Yes 0 (1 standard drink = 0.6 oz pur e alcohol) Comments No Sex and Gender Information Value Date Recorded Sex Assigned at Not on file Legal Sex Female 5:49 AM INSPECTOR RAG SORTING Gender Identity Not on file Sexual Orientation Not on file documented as of this encounter Plan of Treatment Not on file documented as of this encounter Procedures Procedure Name Priority Date/Time Associated Diagnosis Comments DERMATOPATHOLOGY Routine 09/24/2022 12:0 0 AM INSPECTOR RAG SORTING documented in this encounter Results * DERMATOPATHOLOGY (09/24/2022 12:00 AM INSPECTOR RAG SORTING) Case Report Dermatopathology Report Case: [id number] Authorizing Provider: Live Conner MD Collected: 09/24/2022 12:00 AM Ordering Location: [facility] DermPath Lab Received: 09/24/2022 04:33 PM Pathologist: Alisha Staples MD Specimen: Skin, nasal bridge 3:10 PM [facility] DERMATOPATHOLOGY LABORATORY Final Diagnosis Specimen A. SKIN, nasal bridge: SQUAMOUS CELL CARCINOMA, ACANTHOLYTIC TYPE; SUPERFICIAL PORTIONS OF (C44.321) (see microscopic description) 3:10 PM [facility] DERMATOPATHOLOGY LABORATORY Clinical History [facility] Path: [id number] 3:10 PM [facility] DERMATOPATHOLOGY LABORATORY Gross Description Specimen A: Received is one formalin filled container labeled with the patient's name and designated nasal bridge. The specimen consists of a shave biopsy measuring 5x4x1 mm. Jar 0. 3:10 PM [facility] DERMATOPATHOLOGY LABORATORY Microscopic Description Specimen A. SKIN, nasal bridge: Sections show superficial portions of skin with irregularly shaped nests of keratinocytes with evidence of cornification. In some nests, there is loss of cohesion between the neoplastic cells, as well as individual dyskeratotic cells that lack intercellular bridges. 3:10 PM [facility] DERMATOPATHOLOGY LABORATORY Disclaimer An external and internal positive and negative controls are appropriate for the histochemical, immunohistochemical and immunofluorescence stain(s) in this case (if any), except where stated explicitly. The performance characteristics of the stain(s) cited in this report were developed and its performance characteristic determined by the Dermatopathology Laboratory at [facility], directed by Dr. Shruthi Gilliland. These tests need not be, and therefore are not, approved by the [place] Food and Drug Administration. The tests are used for clinical purposes. Billing Codes Specimen Charges Stain Charges 55134 1 3:10 PM INSPECTOR RAG SORTING DERMATOPATHOLOGY LABORATORY Embedded Images 3:10 PM [facility] DERMATOPATHOLOGY LABORATORY Pathology/Cytolog y TISSUE SPECIMEN FROM SKIN / Unknown 09/24/2022 09/24/2022 4:33 PM INSPECTOR RAG SORTING us Live Conner MD LAB - PATHOLOGY/CYTOLOGY ORDER ÁNGEL Final Result DERMATOPATHOLOGY LABORATORY [facility] - Department of Dermatology [address] [place], [place] [address] [place] [address] documented in this encounter Visit Diagnoses Not on filedocumented in this encounter
--- OUTSIDE RECORDS SUMMARY | 2024-12-07 09:09 | XMS_ITS | Clinical Summary ---
Author Organization [facility] Address [address] [place] [address] Phone Care Team Providers Care Grease Renderer Name Role Phone Naomy Brar MD Primary Care Provider +1- [phone] Allergies No known active allergies Medications buPROPion SR (WELLBUTRIN SR) 150 MG 12 hr tablet Take 1 tablet by mouth every 12 hours 05/19/2019 Active albuterol HFA (PROVENTIL HFA;VENTOLIN HFA) 108 (90 Base) MCG/ACT inhaler Inhale 2 puffs every 30 minutes as needed 07/31/2017 Active ergocalciferol (VITAMIN D2) 1.25 MG (52459 UT) capsule 01/20/2019 Active esomeprazole (NexIUM) [address] capsule 10/30/2019 Active SYNTHROID 75 MCG tablet 11/01/2019 Active INCRUSE ELLIPTA 62.5 MCG/INH inhalation 11/01/2019 Active olmesartan (BENICAR) 20 MG tablet TK 1 T PO D 06/13/2020 Active ferrous sulfate 325 (65 Fe) MG tablet 09/20/2020 Active PARoxetine (PAXIL) 20 MG tablet Take 20 mg by mouth 1 (one) time each day 05/18/2021 Active FLUoxetine (PROzac) 20 MG tablet 10 mg 11/01/2021 Active pravastatin (PRAVACHOL) 40 MG tablet Take 1 tablet (40 mg total) by mouth 1 (one) time each day 90 tablet 3 11/28/2021 Active oxybutynin XL (DITROPAN-XL) 10 MG 24 hr tablet 04/30/2022 Active LORazepam (ATIVAN) 0.5 MG tablet 04/30/2022 Active calcitriol (ROCALTROL) 0.25 MCG capsule Take 1 capsule (0.25 mcg total) by mouth every other day 45 capsule 3 05/29/2022 Active Active Problems Problem Noted Date Diagnosed Date Secondary hyperparathyroidism 09/28/2020 Stage 3a chronic kidney disease 11/05/2019 Hyperkalemia 10/21/2018 Vitamin D deficiency 10/07/2018 Chronic obstructive pulmonary disease 08/03/2018 Essential (primary) hypertension 08/03/2018 Gastroesophageal reflux disease 08/03/2018 Mixed hyperlipidemia 08/03/2018 Immunizations Immunization Administration Dates Next Due Influenza, Injectable, Quadrivalent, Preservativ e Free 05/30/2020,06/16/2019 Influenza, Unspecified 06/13/2021 Pfizer Sars-cov-2 Vaccination 06/13/2021 Family History Medical History Relation Comments Kidney disease Neg Hx Social History Tobacco Use Types Packs/Day Years Used Date Smoking Tobacco: Former Smokeless Tobacco: Never Alcohol Use Standard Drinks/Week Comments Not Currently 0 (1 standard drink = 0.6 oz pur e alcohol) Comments Unknown Sex and Gender Information Value Date Recorded Sex Assigned at Not on file Legal Sex Female 12:55 PM [facility] Gender Identity Not on file Sexual Orientation Not on file Last Filed Vital Signs Vital Sign Reading Time Taken Comments Blood Pressure 128/74 05/29/2022 9:26 AM CDT Pulse 72 05/29/2022 9:26 AM CDT Temperature 35.6 C (96 F) 05/29/2022 9:26 AM CDT Respiratory Rate - - Oxygen Saturation - - Inhaled Oxygen Concentration - - Weight 96.6 kg (213 lb) 05/29/2022 9:26 AM CDT Height 162.6 cm (5' 4 ) 05/29/2022 9:26 AM CDT Body Mass Index 36.56 05/29/2022 9:26 AM CDT Plan of Treatment Health Maintenance Due Date Last Done Comments Pneumococcal PPSV23 Highest Risk Adult (1 of 3 - PCV13) 1979 COVID-19 Vaccine (4 - season) 2024 06/13/2021, 11/14/2020, 10/24/2020 Influenza Vaccine (Season Ended) 2025 06/13/2021, 05/30/2020, 06/16/2019 Insurance [facility] [place] [address] Care Teams Grease Renderer Relationship Specialty Start Date End Date Naomy Brar MD [address] [facility] [address] [place] [address] PCP - General Internal Medicine 10/14/19
[2024-12-07 09:10] LABS: Hematocrit 41.3 % (37.0-47.0); Hemoglobin 13.2 g/dL (12.0-15.0); Mean Corpuscular Hemoglobin 29.3 pg (26-34); Mean Corpuscular Volume 91.8 fl (80-100); Mean Platelet Volume 9.4 fl (7.4-10.4); Platelet Count Result 372 k/mm3 (150-375); White Blood Count 8.7 K/mm3 (4.5-10.0)
[2024-12-07 09:24] LABS: Albumin Level 4.4 g/dL (3.5-5.1); Anion Gap 14 mmol/L (4-12); Blood Urea Nitrogen 23 mg/dL (7-17); Calcium 9.3 mg/dL (8.4-10.2); Carbon Dioxide 20 mmol/L (22-30); Chloride 105 mmol/L (98-107); Estimated Glomerular Filt Rate 33; Glucose 84 mg/dL (65-110); Potassium 4.6 mmol/L (3.4-5.0); Sodium 139 mmol/L (137-145)
[2024-12-07 09:33] LABS: Parathyroid Intact 54.8 pg/mL (14.5-75.2)
[2024-12-07 09:51] LABS: Creatinine Urine 143.2 mg/dL; Total Protein Urine Random 12 mg/dL; Ur Ttl Prot Creatinine Ratio 0.08 mg/mg (0-0.20)
== END 2024-12-07 08:49 | disposition home or self-care (01) ==
PROVIDERS: PCP Family Medicine; Visit Provider Internal Medicine Nephrology
DX: N18.32 Chronic kidney disease, stage 3b (principal)
CPT/HCPCS: 36415; 80069; 82570; 83970; 84156; 85027

== ENCOUNTER 2025-01-21 07:30 | Outpatient (CLI) | payer OTHER, SELFPAY ==
--- OUTSIDE RECORDS SUMMARY | 2025-01-21 07:32 | XMS_ITS | Encounter Summary ---
Author Organization [facility] Address [address] [place] [address] Phone Care Team Providers Care Intelligence Engineer Name Role Phone Naomy Brar MD Primary Care Provider +1- [phone] Encounter Details Date Type Department Care Team (Late st Contact Info) Description [facility] [address] [facility], [address] [place] [address] Hakeem Amor MD [address] [facility], [address] [facility] [place] [address] Social History Tobacco Use Types Packs/Day Years [...] on filedocumented in this encounter Care Teams Intelligence Engineer Relationship Specialty Start Date End Date Naomy Brar MD [address] [place] [address] PCP - General Internal Medicine 10/14/19 documented as of this encounter
--- OUTSIDE RECORDS SUMMARY | 2025-01-21 07:32 | XMS_ITS | Clinical Summary ---
Author Organization [facility] Address [address] [place] [address] Phone Care Team Providers Care Trade Manager Name Role Phone Naomy Brar MD Primary Care Provider +1- [phone] Allergies No known active allergies Medications buPROPion SR (WELLBUTRIN SR) 150 MG 12 hr tablet Take 1 tablet by mouth every 12 hours 05/19/2019 Active albuterol HFA (PROVENTIL HFA;VENTOLIN HFA) 108 (90 Base) MCG/ACT inhaler Inhale 2 puffs every 30 minutes as needed 07/31/2017 Active ergocalciferol (VITAMIN D2) 1.25 MG (03506 UT) capsule 01/20/2019 Active esomeprazole (NexIUM) 40 [...] on file Legal Sex Female 12:[address] [facility] Gender Identity Not on file [...] 9:26 AM CDT Height 162.6 cm (5' 4) 05/29/2022 9:26 AM CDT Body Mass Index 36.56 05/29/2022 9:26 AM CDT Plan of Treatment Health Maintenance Due Date Last Done Comments COVID-19 Vaccine (2023-2 5 season) 2024 06/13/2021, 11/14/2020, 10/24/2020 Influenza Vaccine (Season Ended) 2025 06/13/2021, 05/30/2020, 06/16/2019 Insurance [facility] Care Teams Trade Manager Relationship Specialty Start Date End Date Naomy Brar MD [address] [facility] [address] [facility] [address] [place] [address] PCP - General Internal Medicine 10/14/19
--- OUTSIDE RECORDS SUMMARY | 2025-01-21 07:32 | XMS_ITS | CONTINUITY OF CARE DOCUMENT ---
Author Name marco antonio bernard Address Unknown Organization [facility] Address [id number] [place] [address] [address] [place] [address] Phone [phone] Care Team Providers Care Patient Scheduling Manager Name Role Phone Markell OTT, Brooks Unavailable INSURANCE PROVIDERS Payer name Policy type / Coverage type [employer] Workers' compensation [facility] claim [id number]
--- OUTSIDE RECORDS SUMMARY | 2025-01-21 07:32 | XMS_ITS | Clinical Summary ---
Author Organization [facility] Address [address] [facility] [place] [address] Care Team Providers Care Mine Analyst Name Role Phone Unavailable Primary Care Provider Unavailabl e Source Comments [facility],non-owned Affiliates and Associated Physician Practices is amultiple site organization consisting of ambulatory clinics and hospital sitesin [place], [place]. This disclosure is being madepursuant to the Care Everywhere program and may not contain all information available regarding this patient. Last updated 18.[facility] [employer] Allergies No known active allergies Medications * [...] Active vitamin D, ergocalciferol, (DRISDOL) 1.25 MG (42979 UT) capsule Take 50,000 Units by mouth [...] bladder) Immunizations Immunization Administration Dates Next Due [employer] primary monoval ent 12+ yr 0.3mL [...] on file Legal Sex Female 5:49 AM RURAL ROUTE MAIL CARRIER Gender Identity Not on file Sexual Orientation Not on file Last Filed Vital Signs Vital Sign Reading Time Taken Comments Blood Pressure 129/67 07/03/2021 10:36 AM RURAL ROUTE MAIL CARRIER Pulse 78 07/03/2021 10:36 AM RURAL ROUTE MAIL CARRIER Temperature 36.8 C (98.3 F) 07/31/2017 3:36 PM RURAL ROUTE MAIL CARRIER Respiratory Rate 18 07/31/2017 3:36 PM RURAL ROUTE MAIL CARRIER Oxygen Saturation 94% 07/31/2017 3:36 PM RURAL ROUTE MAIL CARRIER Inhaled Oxygen Concentration - - Weight 97.5 kg (215 lb) 07/03/2021 10:36 AM RURAL ROUTE MAIL CARRIER Height 162.6 cm (5' 4) 07/03/2021 10:36 AM RURAL ROUTE MAIL CARRIER Body Mass Index 36.9 07/03/2021 10:36 AM RURAL ROUTE MAIL CARRIER Plan of Treatment Health Maintenance Due Date [...] SCREENING W JEFFRY Routine 08/31/2021 12:04 PM RURAL ROUTE MAIL CARRIER Encounter for screening mammogram for malignant neoplasm of breast PAP IG LB+HPV APTIMA Routine 07/03/2021 11:30 AM RURAL ROUTE MAIL CARRIER Well woman exam from Last 3 Months or Most Recently Relevant to Health Maintenance Results * MAMMO BILAT SCREENING W JEFFRY (08/31/2021 12:04 PM RURAL ROUTE MAIL CARRIER) Anatomical Region Laterality Modality Breast Bilateral Mammography 08/31/2021 12:4 7 PM RURAL ROUTE MAIL CARRIER Impressions 08/31/2021 12:52 PM RURAL ROUTE MAIL CARRIER No mammographic evidence of malignancy in either breast. ASSESSMENT: BIRADS Category 1: Negative mammogram. RECOMMENDATION: Bilateral screening mammogram in one year. Thank you for allowing us to participate in the care of your patient. [facility] Breast [facility] utilizes [employer] as a reminder system to notify patients of their next recommended mammogram. *Reading Radiologist: Genoveva Stiles on 08/31/2021 at 12:52 PM Narrative 08/31/2021 12:52 PM RURAL ROUTE MAIL CARRIER EXAMINATION: Digital screening mammogram. Low-dose full-field digital [...] PAP IG LB+HPV APTIMA (07/03/2021 11:30 AM RURAL ROUTE MAIL CARRIER) Diagnosis [facility] ACCOUNT BILL Comment:NEGATIVE FOR INTRAEP [...] UTERINE CERVIX / Unknown 07/03/2021 11:30 AM RURAL ROUTE MAIL CARRIER 07/04/2021 Narrative [facility] ACCOUNT BILL - 07/05/2021 11:06 PM RURAL ROUTE MAIL CARRIER No. of containers..01 ThinPrep Vial Resulting Agency Comment Lab Testing performed at: [address] [id number] Jaylene Eaton MD LAB - PATHOLOGY/CYTOLOGY OR DERABLES Final Result [facility] ACCOUNT BILL [address] [place] [address] from Last 3 Months or Most Recently Relevant to Health Maintenance Insurance [facility]
--- OUTSIDE RECORDS SUMMARY | 2025-01-21 07:32 | XMS_ITS | Encounter Summary ---
Author Organization [facility] Address [address] [facility] [place] [address] Care Team Providers Care Builder Operator Name Role Phone Unavailable Primary Care Provider Unavailabl e Encounter Details Date Type Department Care Team (Late st Contact Info) Description 10/07/2022 Lab Requisition [facility] DermPath Lab [address] [facility] [place] [place] [address] Live Conner MD [address] [place] [address] Social History Tobacco Use Types Packs/Day Years Used Date Smoking Tobacco: Former Cigarettes Q uit: 2013 Smokeless Tobacco: Never Alcohol Use Standard Drinks/Week Comments Yes 0 (1 standard drink = 0.6 oz pur e alcohol) Comments No Sex and Gender Information Value Date Recorded Sex Assigned at Not on file Legal Sex Female 5:49 AM SCHOOL OFFICE ASSISTANT Gender Identity Not on file Sexual Orientation Not on file documented as of this encounter Plan of Treatment Not on file documented as of this encounter Procedures Procedure Name Priority Date/Time Associated Diagnosis Comments DERMATOPATHOLOGY Routine 10/03/2022 12:0 0 AM SCHOOL OFFICE ASSISTANT documented in this encounter Results * DERMATOPATHOLOGY (10/03/2022 12:00 AM SCHOOL OFFICE ASSISTANT) Case Report Dermatopathology Report Case: [id number] Authorizing Provider: Live Conner MD Collected: 10/03/2022 12:00 AM Ordering Location: [facility] DermPath Lab Received: 10/07/2022 06:37 AM Pathologist: Alisha Staples MD Specimen: Skin, nasal bridge 3 4:21 PM [facility] DERMATOPATHOLOGY LABORATORY Final Diagnosis Specimen A. SKIN, nasal bridge: SQUAMOUS CELL CARCINOMA, MODERATELY TO WELL DIFFERENTIATED (C44.321) NOT PRESENT AT SAMPLED MARGIN ULCER WITH SUPERFICIAL DERMAL NECROSIS (L98.499) DERMAL SCAR (L90.5) (see microscopic description) 3 4:21 PM [facility] DERMATOPATHOLOGY LABORATORY at [address] [facility] Clinical History SCCA. Check Margins. Path# [id number] 3 4:21 PM [facility] DERMATOPATHOLOGY LABORATORY Gross Description Specimen A: Received is one formalin filled container labeled with the patient's name and designated nasal bridge. The specimen consists of a 17x9x3 mm piece of skin. The margin is inked green. The specimen is bisected lengthwise and submitted in 1 cassette. Jar 0. 3 4:21 PM [facility] DERMATOPATHOLOGY LABORATORY [...] to the skin surface. 3 4:21 PM [facility] DERMATOPATHOLOGY LABORATORY Disclaimer An external and internal positive and negative controls are appropriate for the histochemical, immunohistochemical and immunofluorescence stain(s) in this case (if any), except where stated explicitly. The performance characteristics of the stain(s) cited in this report were developed and its performance characteristic determined by the Dermatopathology Laboratory at [facility], directed by Dr. Shruthi Gilliland. These tests need not be, and therefore are not, approved by the [place] Food and Drug Administration. The tests are used for clinical purposes. Billing Codes Specimen Charges Stain Charges 84574 1 78643 1 3 4:21 PM [facility] DERMATOPATHOLOGY LABORATORY Embedded Images 3 4:21 PM SCHOOL OFFICE ASSISTANT DERMATOPATHOLOGY LABORATORY Pathology/Cytolog y TISSUE SPECIMEN FROM SKIN / Unknown 10/03/2022 10/07/2022 6:37 AM SCHOOL OFFICE ASSISTANT us Live Conner MD LAB - PATHOLOGY/CYTOLOGY ORDER ÁNGEL Final Result DERMATOPATHOLOGY LABORATORY [facility] - Department of Dermatology [facility] Specialized Medicine [address] [place] [address], [address] [phone] documented in this encounter Visit Diagnoses Not on filedocumented in this encounter
--- OUTSIDE RECORDS SUMMARY | 2025-01-21 07:32 | XMS_ITS | Encounter Summary ---
Author Organization [facility] Address [address] [facility] [place] [address] Care Team Providers Care Fiscal Assistant Name Role Phone Unavailable Primary Care Provider Unavailabl e Encounter Details Date Type Department Care Team (Late st Contact Info) Description 09/24/2022 Lab Requisition [facility] DermPath Lab [address] [facility] [facility] [place] [address] Live Conner MD [address] [place] [address] Social History Tobacco Use Types Packs/Day Years Used Date Smoking Tobacco: Former Cigarettes Q uit: 2013 Smokeless Tobacco: Never Alcohol Use Standard Drinks/Week Comments Yes 0 (1 standard drink = 0.6 oz pur e alcohol) Comments No Sex and Gender Information Value Date Recorded Sex Assigned at Not on file Legal Sex Female 5:49 AM CONFIDENTIAL INVESTIGATOR Gender Identity Not on file Sexual Orientation Not on file documented as of this encounter Plan of Treatment Not on file documented as of this encounter Procedures Procedure Name Priority Date/Time Associated Diagnosis Comments DERMATOPATHOLOGY Routine 09/24/2022 12:0 0 AM CONFIDENTIAL INVESTIGATOR documented in this encounter Results * DERMATOPATHOLOGY (09/24/2022 12:00 AM CONFIDENTIAL INVESTIGATOR) Case Report Dermatopathology Report Case: [id number] Authorizing Provider: Live Conner MD Collected: 09/24/2022 12:00 AM Ordering Location: [facility] DermPath Lab Received: 09/24/2022 04:33 PM Pathologist: Alisha Staples MD Specimen: Skin, nasal bridge 3:10 PM [facility] DERMATOPATHOLOGY LABORATORY Final Diagnosis Specimen A. SKIN, nasal bridge: SQUAMOUS CELL CARCINOMA, ACANTHOLYTIC TYPE; SUPERFICIAL PORTIONS OF (C44.321) (see microscopic description) 3:10 PM [facility] DERMATOPATHOLOGY LABORATORY at [address]10 CONFIDENTIAL INVESTIGATOR Clinical History [facility] Path: [id number] 3:10 PM [facility] DERMATOPATHOLOGY LABORATORY Gross Description Specimen A: Received is one formalin filled container labeled with the patient's name and designated nasal bridge. The specimen consists of a shave biopsy measuring 5x4x1 mm. Jar 0. 3:10 PM [facility] DERMATOPATHOLOGY LABORATORY Microscopic Description Specimen A. SKIN, nasal bridge: Sections show superficial portions of skin with irregularly shaped nests of keratinocytes with evidence of cornification. In some nests, there is loss of cohesion between the neoplastic cells, as well as individual dyskeratotic cells that lack intercellular bridges. 3:10 PM [facility] DERMATOPATHOLOGY LABORATORY Disclaimer An external and internal positive and negative controls are appropriate for the histochemical, immunohistochemical and immunofluorescence stain(s) in this case (if any), except where stated explicitly. The performance characteristics of the stain(s) cited in this report were developed and its performance characteristic determined by the Dermatopathology Laboratory at [facility], directed by Dr. Shruthi Gilliland. These tests need not be, and therefore are not, approved by the [place] Food and Drug Administration. The tests are used for clinical purposes. Billing Codes Specimen Charges Stain Charges 82511 1 3 3:10 PM [facility] DERMATOPATHOLOGY LABORATORY Embedded Images 3:10 PM [facility] DERMATOPATHOLOGY LABORATORY Pathology/Cytolog y TISSUE SPECIMEN FROM SKIN / Unknown 09/24/2022 09/24/2022 4:33 PM CONFIDENTIAL INVESTIGATOR us Live Conner MD LAB - PATHOLOGY/CYTOLOGY ORDER ÁNGEL Final Result DERMATOPATHOLOGY LABORATORY [facility] - Department of Dermatology [address] Floor [place], [place] [address] [place] [address] documented in this encounter Visit Diagnoses Not on filedocumented in this encounter
--- OUTSIDE RECORDS SUMMARY | 2025-01-21 07:32 | XMS_ITS | Clinical Summary ---
Author Organization [facility] Dominick Morales Address [address] [place] [address] Care Team Providers Care Advisor Consultant Name Role Phone Naomy Brar MD Primary Care Provider +1- [phone] Allergies No known active allergies Medications buPROPion [...] Encounters Date Type Department Care Team Description 01/18/2025 External Device Data STL ABSTRACTION Provider, Abstract 01/12/2025 External Device Data [facility] ABSTRACTION Provider, Abstract 01/12/2025 External Device Data [facility] ABSTRACTION Provider, Abstract 11/23/2024 External Device Data [facility] ABSTRACTION Provider, [...] Comments Blood Pressure 103/63 07/15/2024 10:38 AM SHEET MANUFACTURING SUPERVISOR Pulse 70 07/15/2024 10:38 AM SHEET MANUFACTURING SUPERVISOR Temperature 36.3 C (97.3 F) 07/15/2024 10:38 AM SHEET MANUFACTURING SUPERVISOR Respiratory Rate 16 07/15/2024 10:3 8 AM SHEET MANUFACTURING SUPERVISOR Oxygen Saturation 95% 07/15/2024 10: 38 AM SHEET MANUFACTURING SUPERVISOR Inhaled Oxygen Concentration - - Weight 84.8 kg (187 lb) 07/15/2024 10:3 8 AM SHEET MANUFACTURING SUPERVISOR Patient is trying to lose weight Height 161.3 cm (5' 3.5) 05/06/2023 10 :23 AM CDT Body Mass Index 32.61 05/06/2023 10:23 AM CDT Plan of Treatment Upcoming Encounters Date Type Department Care Team (Late st Contact Info) Description 09/07/2025 3:30 PM SHEET MANUFACTURING SUPERVISOR Office Visit [facility] Oncology and Hematology - Naresh [address] [facility] [address] [place] [address] Cooper Quigley MD [address] [facility] [address] [place] [address] Health Maintenance Due Date Last [...] VACCINE (#1) 2024 05/30/2020, 2018 COVID-19 Vaccine ( season) 2024 06/13/2021, 11/14/2020, 10/24/2020 COLORECTAL SCREENING 08/25/2024 08/25/2014 Colorectal Cancer Screening 08/25/2024 Insurance Care Teams Advisor Consultant Relationship Specialty Start Date End Date Naomy Brar MD PCP - General Family Practice 12/04/22
--- OUTSIDE RECORDS SUMMARY | 2025-01-21 07:32 | XMS_ITS | Encounter Summary ---
Author Organization [facility] Address [address] [place] [address] Care Team Providers Care Commercial Internship Name Role Phone Unavailable Primary Care Provider Unavailabl e Encounter Details Date Type Department Care Team (Late st Contact Info) Description 10/25/2021 Lab Requisition [facility] DermPath Lab [address] [facility] [place] [address] Live Conner MD [address] [facility] [place] [address] Social History Tobacco Use Types Packs/Day Years Used Date Smoking Tobacco: Former Cigarettes Q uit: 2013 Smokeless Tobacco: Never Alcohol Use Standard Drinks/Week Comments Yes 0 (1 standard drink = 0.6 oz pur e alcohol) Comments No Sex and Gender Information Value Date Recorded Sex Assigned at Not on file Legal Sex Female 5:49 AM DROP COUNT ASSOCIATE Gender Identity Not on file Sexual Orientation Not on file documented as of this encounter Plan of Treatment Not on file documented as of this encounter Procedures Procedure Name Priority Date/Time Associated Diagnosis Comments DERMATOPATHOLOGY Routine 10/24/2021 12:0 0 AM DROP COUNT ASSOCIATE documented in this encounter Results * DERMATOPATHOLOGY (10/24/2021 12:00 AM DROP COUNT ASSOCIATE) Case Report Dermatopathology Report Case: [id number] Authorizing Provider: Live Conner MD Collected: 10/24/2021 12:00 AM Ordering Location: [facility] DermPath Lab Received: 10/25/2021 03:19 PM Pathologist: Yael Lama MD Specimen: Skin, mid forehead 2 3:49 PM [facility] DERMATOPATHOLOGY LABORATORY Final Diagnosis Specimen A. SKIN, mid forehead: SQUAMOUS CELL CARCINOMA IN SITU (WANG'S DISEASE) (D04.39) (see microscopic description) 2 3:49 PM [facility] DERMATOPATHOLOGY LABORATORY at 1549 DROP COUNT ASSOCIATE Clinical History AK vs SCCA in situ. Path # [id number]. 2 3:49 PM [facility] DERMATOPATHOLOGY LABORATORY Gross Description Specimen A: Received is one formalin filled container labeled with the patient's name and designated mid forehead. The specimen consists of a shave biopsy measuring [id number]. Jar 0. 2 3:49 PM [facility] DERMATOPATHOLOGY LABORATORY Microscopic Description Specimen A. SKIN, mid forehead: The epidermis shows parakeratosis, full thickness disorderly maturation of keratinocytes, mitoses at different levels, and dyskeratotic cells. Additional deeper sections were obtained and reviewed. 2 3:49 PM [facility] DERMATOPATHOLOGY LABORATORY Disclaimer An external and internal positive and negative controls are appropriate for the histochemical, immunohistochemical and immunofluorescence stain(s) in this case (if any), except where stated explicitly. The performance characteristics of the stain(s) cited in this report were developed and its performance characteristic determined by the Dermatopathology Laboratory at [facility], directed by Dr. Shruthi Gilliland. These tests need not be, and therefore are not, approved by the [place] Food and Drug Administration. The tests are used for clinical purposes. Billing Codes Specimen Charges Stain Charges 91973 1 2 3:49 PM [facility] DERMATOPATHOLOGY LABORATORY Embedded Images 2 3:49 PM [facility] DERMATOPATHOLOGY LABORATORY Pathology/Cytolog y TISSUE SPECIMEN FROM SKIN / Unknown 10/24/2021 10/25/2021 3:19 PM DROP COUNT ASSOCIATE us Live Conner MD LAB - PATHOLOGY/CYTOLOGY ORDER ÁNGEL Final Result DERMATOPATHOLOGY LABORATORY [facility] - Department of Dermatology [address], [address] Floor [place], [place] [address] [place] [address] documented in this encounter Visit Diagnoses Not on filedocumented in this encounter
[2025-01-21 08:10] LABS: Cholesterol 198 mg/dL (0-200); HDL Direct 57 mg/dL; Triglycerides 135 mg/dL (<150)
[2025-01-21 08:21] LABS: LDL Cholesterol Direct 116 mg/dL
[2025-01-21 08:30] LABS: Hemoglobin A1C 5.2 % (<5.7)
[2025-01-21 08:34] LABS: Free T4 Free Thyroxine 1.15 ng/dL (0.78-2.19)
== END 2025-01-21 07:31 | disposition home or self-care (01) ==
LOC: ANHLAB 07:31
PROVIDERS: PCP Family Medicine
DX: E03.9 Hypothyroidism, unspecified (principal); I10 Essential (primary) hypertension; E78.2 Mixed hyperlipidemia; R73.03 Prediabetes
CPT/HCPCS: 36415; 80061; 83036; 84439; 84443

== ENCOUNTER 2025-02-17 14:34 | Outpatient (CLI) | payer OTHER, SELFPAY ==
--- NOTE | ~2025-02-17 | CT_ITS ---
CT Scan of the Chest without Contrast: Clinical Indication: Lung cancer screening, nicotine dependence Technique: Contiguous sections were acquired throughout the chest without intravenous contrast. Dose reduction technique was used on this scan by utilizing automated exposure control and iterative recon struction technique. The dose-length product (DLP) was 132.38 mGy-cm. COMPARISON: 10/02/2023 Findings: There is no evidence of any significant mediastinal, hilar or axillary lymphadenopathy. Coronary aruna ry calcifications are present. There is no evidence of pleural or pericardial effusion. The lungs are clear. No pulmonary nodules or infiltrates are noted. Images through the upper abdomen reveal no abnormalities. Impression: Lung RADS 1: Negative. 12 month follow-up screening CT advised. Reviewed, dictated and finalized at location . Impression: Lung RADS 1: Negative. 12 month follow-up screening CT advised.
== END 2025-02-17 14:35 | disposition home or self-care (01) ==
PROVIDERS: PCP Family Medicine; Visit Provider Student in an Organized Health Care Education/Training Program
DX: Z12.2 Encounter for screening for malignant neoplasm of respiratory organs (principal); Z87.891 Personal history of nicotine dependence
CPT/HCPCS: 71271

== ENCOUNTER 2025-06-06 08:11 | Outpatient (CLI) | payer OTHER, SELFPAY ==
--- OUTSIDE RECORDS SUMMARY | 2025-06-06 08:19 | XMS_ITS | Clinical Summary ---
Author Organization [facility] Address [address] [place] [id number] Care Team Providers Care Punch Press Setter Name Role Phone Michael Reed DO Primary Care Provider [phone] Social History Tobacco Use Types Packs/Day Years [...] AM CDT Pulse 68 10/10/2016 10:03 AM PHARMACY HELPER Temperature - - Respiratory Rate - - Oxygen Saturation - - Inhaled Oxygen Concentration - - Weight 94.8 kg (209 lb) 04/10/2017 8:56 AM CDT Height 161.9 cm (5' 3.75) 04/10/2017 8:56 AM CD T Body Mass Index 36.15 04/10/2017 8:56 AM CDT Plan of Treatment Health Maintenance Due Date Last Done Comments Cervical Cancer Screening Pap Smear (Age 30 to 64) Every 3 Years 1961 Annual Physical 1964 Hepatitis C 1979 Cervical Cancer Screening Pap with HPV Testing (Age 30 to 64) Every 5 Years 1991 Cervical Cancer Screening with HPV 1991 Mammogram Screening 2001 Pneumococcal Vaccine: 50+ Years (1 of 1 - PCV) 2011 Zoster Vaccines (1 of 2) 2011 DTaP, Tdap and Td Vaccines (2 - Td or Tdap) 10/12/2020 10/12/2010 Colorectal Cancer Screening Colonoscopy (10 Years) 08/25/2024 08/25/2014 COVID-19 Vaccine ( season) 2025 Influenza Adult (#1) 2025 06/23/2015, 05/27/2014, 06/03/2013, Additional history exists RSV Immunization or 60+ Years (1 - [...] Diagnosis Comments COLONOSCOPY Routine 08/25/2014 12:00 AM PHARMACY HELPER from Last 3 Months or Most Recently Relevant to Health Maintenance Results * Colonoscopy (08/25/2014 12:00 AM PHARMACY HELPER) 08/25/2014 08/25/2014 Narrative TOUCHWORKS TO EPIC CONVERSION - 08/25/2014 12:00 AM PHARMACY HELPER Documented hx of procedure Procedure Note , Eris Foss, - 11/12/2018 Documented hx of procedure Generic Conversion Md OTT GI PROCEDURE ORDERABLES Final Result TOUCHWORKS TO EPIC CONVERSION from Last 3 Months or Most Recently Relevant to Health Maintenance Insurance [facility] Care Teams Punch Press Setter Relationship Specialty Start Date End Date Michael Reed DO [address] [place] [address] PCP - General 10/31/16
--- OUTSIDE RECORDS SUMMARY | 2025-06-06 08:19 | XMS_ITS | Encounter Summary ---
Author Organization [facility] Address [address] [facility] [place] [address] Care Team Providers Care Radiation Protection Technician Name Role Phone Unavailable Primary Care Provider Unavailabl e Encounter Details Date Type Department Care Team (Late st Contact Info) Description 10/07/2022 Lab Requisition [facility] Care DermPath Lab [address] [facility] [place] [address] Live Conner MD [address] [facility] [address] Social History Tobacco Use Types Packs/Day Years Used Date Smoking Tobacco: Former Cigarettes Q uit: 2014 Smokeless Tobacco: Never Alcohol Use Standard Drinks/Week Comments Yes 0 (1 standard drink = 0.6 oz pur e alcohol) Comments No Sex and Gender Information Value Date Recorded Sex Assigned at Not on file Legal Sex Female 5:49 AM TOBACCO CLOTH RECLAIMER Gender Identity Not on file Sexual Orientation Not on file documented as of this encounter Plan of Treatment Not on file documented as of this encounter Procedures Procedure Name Priority Date/Time Associated Diagnosis Comments DERMATOPATHOLOGY Routine 10/03/2022 12:0 0 AM TOBACCO CLOTH RECLAIMER documented in this encounter Results * DERMATOPATHOLOGY (10/03/2022 12:00 AM TOBACCO CLOTH RECLAIMER) Case Report Dermatopathology Report Case: [id number] Authorizing Provider: Live Conner MD Collected: 10/03/2022 12:00 AM Ordering Location: [facility] DermPath Lab Received: 10/07/2022 06:37 AM Pathologist: Alisha Staples MD Specimen: Skin, nasal bridge 4:21 PM [facility] DERMATOPATHOLOGY LABORATORY Final Diagnosis Specimen A. SKIN, nasal bridge: SQUAMOUS CELL CARCINOMA, MODERATELY TO WELL DIFFERENTIATED (C44.321) NOT PRESENT AT SAMPLED MARGIN ULCER WITH SUPERFICIAL DERMAL NECROSIS (L98.499) DERMAL SCAR (L90.5) (see microscopic description) 4:21 PM [facility] DERMATOPATHOLOGY LABORATORY at [address] [facility] Clinical History SCCA. Check Margins. Path# [id number] 4:21 PM [facility] DERMATOPATHOLOGY LABORATORY Gross Description Specimen A: Received is one formalin filled container labeled with the patient's name and designated nasal bridge. The specimen consists of a 17x9x3 mm piece of skin. The margin is inked green. The specimen is bisected lengthwise and submitted in 1 cassette. Jar 0. 4:21 PM [facility] DERMATOPATHOLOGY LABORATORY Microscopic Description Specimen A. [...] are oriented perpendicular to the skin surface. 4:21 PM [facility] DERMATOPATHOLOGY LABORATORY Disclaimer An external and internal positive and negative controls are appropriate for the histochemical, immunohistochemical and immunofluorescence stain(s) in this case (if any), except where stated explicitly. The performance characteristics of the stain(s) cited in this report were developed and its performance characteristic determined by the Dermatopathology Laboratory at [facility], directed by Dr. Shruthi Gilliland. These tests need not be, and therefore are not, approved by the [place] Food and Drug Administration. The tests are used for clinical purposes. Billing Codes Specimen Charges Stain Charges 62008 1 66782 1 02/16/202 3 4:21 PM TOBACCO CLOTH RECLAIMER DERMATOPATHOLOGY LABORATORY Embedded Images 3 4:21 PM TOBACCO CLOTH RECLAIMER DERMATOPATHOLOGY LABORATORY Pathology/Cytolog y TISSUE SPECIMEN FROM SKIN / Unknown 10/03/2022 10/07/2022 6:37 AM TOBACCO CLOTH RECLAIMER us Live Conner MD LAB - PATHOLOGY/CYTOLOGY ORDER ÁNGEL Final Result DERMATOPATHOLOGY LABORATORY [facility] - Department of Dermatology [facility] Specialized Medicine [address] [place] [address], [address] [phone] documented in this encounter Visit Diagnoses Not on filedocumented in this encounter
--- OUTSIDE RECORDS SUMMARY | 2025-06-06 08:19 | XMS_ITS | Encounter Summary ---
Author Organization [facility] Address [address] [facility] [place] [address] Care Team Providers Care Channel Partners Name Role Phone Unavailable Primary Care Provider Unavailabl e Encounter Details Date Type Department Care Team (Late st Contact Info) Description 09/24/2022 Lab Requisition [facility] Care DermPath Lab [address] [facility] [place] [address] Live Conner MD [address] [facility] [place] [address] Social History Tobacco Use Types Packs/Day Years Used Date Smoking Tobacco: Former Cigarettes Q uit: 2014 Smokeless Tobacco: Never Alcohol Use Standard Drinks/Week Comments Yes 0 (1 standard drink = 0.6 oz pur e alcohol) Comments No Sex and Gender Information Value Date Recorded Sex Assigned at Not on file Legal Sex Female 5:49 AM CABLE SWAGER Gender Identity Not on file Sexual Orientation Not on file documented as of this encounter Plan of Treatment Not on file documented as of this encounter Procedures Procedure Name Priority Date/Time Associated Diagnosis Comments DERMATOPATHOLOGY Routine 09/24/2022 12:0 0 AM CABLE SWAGER documented in this encounter Results * DERMATOPATHOLOGY (09/24/2022 12:00 AM CABLE SWAGER) Case Report Dermatopathology Report Case: [id number] Authorizing Provider: Live Conner MD Collected: 09/24/2022 12:00 AM Ordering Location: [facility] DermPath Lab Received: 09/24/2022 04:33 PM Pathologist: Alisha Staples MD Specimen: Skin, nasal bridge 3:10 PM [facility] DERMATOPATHOLOGY LABORATORY Final Diagnosis Specimen A. SKIN, nasal bridge: SQUAMOUS CELL CARCINOMA, ACANTHOLYTIC TYPE; SUPERFICIAL PORTIONS OF (C44.321) (see microscopic description) 3:10 PM [facility] DERMATOPATHOLOGY LABORATORY at 1510 CABLE SWAGER Clinical History [facility] Path: [id number] 3:10 PM [facility] DERMATOPATHOLOGY LABORATORY Gross Description Specimen A: Received is one formalin filled container labeled with the patient's name and designated nasal bridge. The specimen consists of a shave biopsy measuring 5x4x1 mm. Jar 0. 3:10 PM [facility] DERMATOPATHOLOGY LABORATORY Microscopic Description Specimen A. SKIN, nasal bridge: Sections show superficial portions of skin with irregularly shaped nests of keratinocytes with evidence of cornification. In some nests, there is loss of cohesion between the neoplastic cells, as well as individual dyskeratotic cells that lack intercellular bridges. 3:10 PM [facility] DERMATOPATHOLOGY LABORATORY Disclaimer An external and internal positive and negative controls are appropriate for the histochemical, immunohistochemical and immunofluorescence stain(s) in this case (if any), except where stated explicitly. The performance characteristics of the stain(s) cited in this report were developed and its performance characteristic determined by the Dermatopathology Laboratory at [facility], directed by Dr. Shruthi Gilliland. These tests need not be, and therefore are not, approved by the [place] Food and Drug Administration. The tests are used for clinical purposes. Billing Codes Specimen Charges Stain Charges 22311 1 3:10 PM [facility] DERMATOPATHOLOGY LABORATORY Embedded Images 3:10 PM [facility] DERMATOPATHOLOGY LABORATORY Pathology/Cytolog y TISSUE SPECIMEN FROM SKIN / Unknown 09/24/2022 09/24/2022 4:33 PM CABLE SWAGER us Live Conner MD LAB - PATHOLOGY/CYTOLOGY ORDER ÁNGEL Final Result DERMATOPATHOLOGY LABORATORY [facility] - Department of Dermatology [address] [phone] documented in this encounter Visit Diagnoses Not on filedocumented in this encounter
--- OUTSIDE RECORDS SUMMARY | 2025-06-06 08:19 | XMS_ITS | Encounter Summary ---
Author Organization [facility] Address [address] [place] [address] Care Team Providers Care Scientific Software Engineer Name Role Phone Michael Reed DO Primary Care Provider Encounter Details Date Type Department Care Team (Latest Contact Info) Description 06/30/2018 Abstract [facility] , Eris Foss MD [...] on filedocumented in this encounter Care Teams Scientific Software Engineer Relationship Specialty Start Date End Date Michael Reed DO [address] [place] [id number] PCP - General 10/31/16 documented as of this encounter
--- OUTSIDE RECORDS SUMMARY | 2025-06-06 08:19 | XMS_ITS | Encounter Summary ---
Author Organization [facility] Ilene valerio Address [address] [place] [address] Phone Care Team Providers Care Side Door Worker Name Role Phone Naomy Brar MD Primary Care Provider [phone] Encounter Details Date Type Department Care Team (Late st Contact Info) Description 03/08/2020 [facility] [address] [facility], [address] [place] [address] Hakeem Amor MD [address] [facility], [address] [facility] [place] [address] Social History Tobacco Use Types Packs/Day Years [...] on filedocumented in this encounter Care Teams Side Door Worker Relationship Specialty Start Date End Date Naomy Brar MD [address] [facility] [address] [place] [address] PCP - General Internal Medicine 10/14/19 documented as of this encounter
--- OUTSIDE RECORDS SUMMARY | 2025-06-06 08:19 | XMS_ITS | Clinical Summary ---
Author Organization [facility] Ilene [facility]erio Address [address] [place] [address] Phone Care Team Providers Care Inspector Motor Vehicles Name Role Phone Naomy Brar MD Primary Care Provider +1- [phone] Allergies No known active allergies Medications buPROPion SR (WELLBUTRIN SR) 150 MG 12 hr tablet Take 1 tablet by mouth every 12 hours 05/19/2019 Active albuterol HFA (PROVENTIL HFA;VENTOLIN HFA) 108 (90 Base) MCG/ACT inhaler Inhale 2 puffs every 30 minutes as needed 07/31/2017 Active ergocalciferol (VITAMIN D2) 1.25 MG (00915 UT) capsule 01/20/2019 Active esomeprazole (NexIUM) 40 [...] on file Legal Sex Female 12:55 PM [facility] Gender Identity Not on file Sexual [...] Due Date Last Done Comments COVID-19 Vaccine (2024-2 6 season) 2025 06/13/2021, 11/14/2020, 10/24/2020 Influenza Vaccine (#1) 2025 , 05/30/2020, 06/16/2019 Insurance [facility] Care Teams Inspector Motor Vehicles Relationship Specialty Start Date End Date Naomy Brar MD [address] [facility] [address] [facility] [address] [place] [address] PCP - General Internal Medicine 10/14/19
--- OUTSIDE RECORDS SUMMARY | 2025-06-06 08:19 | XMS_ITS | Clinical Summary ---
Author Organization [facility] Dominick Morales Address [address] [place] [address] Care Team Providers Care Jelly Filter Tender Name Role Phone Naomy Brar MD Primary Care Provider +1- [phone] Allergies No known active allergies Medications buPROPion [...] Encounters Date Type Department Care Team Description 03/29/2025 External Device Data STL ABSTRACTION Provider, Abstract [...] Comments Blood Pressure 103/63 07/15/2024 10:38 AM ACCOUNTS PAYABLE CLERK Pulse 70 07/15/2024 10:38 AM ACCOUNTS PAYABLE CLERK Temperature 36.3 C (97.3 F) 07/15/2024 10:38 AM ACCOUNTS PAYABLE CLERK Respiratory Rate 16 07/15/2024 10:3 8 AM ACCOUNTS PAYABLE CLERK Oxygen Saturation 95% 07/15/2024 10: 38 AM ACCOUNTS PAYABLE CLERK Inhaled Oxygen Concentration - - Weight 84.8 kg (187 lb) 07/15/2024 10:3 8 AM ACCOUNTS PAYABLE CLERK Patient is trying to lose weight Height 161.3 cm (5' 3.5) 05/06/2023 10 :23 AM CDT Body Mass Index 32.61 05/06/2023 10:23 AM CDT Plan of Treatment Upcoming Encounters Date Type Department Care Team (Late st Contact Info) Description 09/07/2025 3:30 PM ACCOUNTS PAYABLE CLERK Office Visit [facility] Oncology and Hematology - Naresh [address] [facility] [address] [place] [address] Cooper Quigley MD [address] [facility] [address] [place] [address] Health Maintenance Due Date Last [...] 2021 BREAST CANCER SCREENING 08/31/2022 08/31/2021, 08/31 COLORECTAL SCREENING 08/25/2024 08/25/2014 Colorectal Cancer Screening 08/25/2024 INFLUENZA VACCINE (#1) 2025 05/30/2020, 2018 COVID-19 Vaccine ( season) 2025 06/13/2021, 11/14/2020, 10/24/2020 Insurance [facility] [id number] Care Teams Jelly Filter Tender Relationship Specialty Start Date End Date Naomy Brar MD PCP - General Family Practice 12/04/22
--- OUTSIDE RECORDS SUMMARY | 2025-06-06 08:19 | XMS_ITS | Clinical Summary ---
Author Organization [facility] Address [address] [place] [address] Care Team Providers Care Glass Washer And Carrier Name Role Phone Unavailable Primary Care Provider Unavailabl e Source Comments [facility],non-owned Affiliates and Associated Physician Practices is amultiple site organization consisting of ambulatory clinics and hospital sitesin [place], [place], [place] and [place]. This disclosure is being madepursuant to the Care Everywhere program and may not contain all information available regarding this patient. Last updated 18.[facility] Presentain Allergies No known active allergies Medications * [...] Active vitamin D, ergocalciferol, (DRISDOL) 1.25 MG (24986 UT) capsule Take 50,000 Units by mouth [...] bladder) Immunizations Immunization Administration Dates Next Due [employer] primary monoval ent 12+ yr 0.3mL Purple [...] file Legal Sex Female 5:49 AM SUPERVISOR [employer]SEMBL[employer] Gender Identity Not on file Sexual Orientation Not on file Last Filed Vital Signs Vital Sign Reading Time Taken Comments Blood Pressure 129/67 07/03/2021 10:36 AM SUPERVISOR [employer] Pulse 78 07/03/2021 10:36 AM SUPERVISOR [employer] Temperature 36.8 C (98.3 F) 07/31/2017 3:36 PM SUPERVISOR [employer] Respiratory Rate 18 07/31/2017 3:36 PM SUPERVISOR [employer] Oxygen Saturation 94% 07/31/2017 3:36 PM [employer]PERVIS[employer] Inhaled Oxygen Concentration - - Weight 97.5 kg (215 lb) 07/03/2021 10:36 AM SUPERVISOR [employer] Height 162.6 cm (5' 4) 07/03/2021 10:36 AM SUPERVISOR [employer] Body Mass Index 36.9 07/03/2021 10:36 AM SUPERVISOR [employer] Plan of Treatment Health Maintenance Due Date [...] 08/31/2023 08/31/2021, 07/25, 07/29/2018, Additional history exists DEPRESSION SCREENING 08/25/2024 COVID-19 VACCINE ( season) 2025 06/13/2021, 11/14/2020, 10/24/2020 INFLUENZA VACCINE (#1) 2025 , 05/30/2020, 06/16/2019 PAP with HPV 07/03/2026 07/03/2021, [...] SCREENING W JEFFRY Routine 08/31/2021 12:04 PM [employer] Encounter for screening mammogram for malignant neoplasm of breast PAP IG LB+HPV APTIMA Routine 07/03/2021 11:30 AM SUPERVISOR [employer] Well woman exam from Last 3 Months or Most Recently Relevant to Health Maintenance Results * MAMMO BILAT SCREENING W JEFFRY (08/31/2021 12:04 PM SUPERVISOR [employer]) Anatomical Region Laterality Modality Breast Bilateral Mammography 08/31/2021 12:4 7 PM SUPERVIS[employer] Impressions 08/31/2021 12:52 PM SUPERVISOR [employer] No mammographic evidence of malignancy in either breast. ASSESSMENT: BIRADS Category 1: Negative mammogram. RECOMMENDATION: Bilateral screening mammogram in one year. Thank you for allowing us to participate in the care of your patient. [facility] utilizes [employer] as a reminder system to notify patients of their next recommended mammogram. *Reading Radiologist: Genoveva Stiles on 08/31/2021 at 12:52 PM Narrative 08/31/2021 12:52 PM SUPERVIS[employer] EXAMINATION: Digital screening mammogram. Low-dose full-field digital [...] PAP IG LB+HPV APTIMA (07/03/2021 11:30 AM SUPERVISOR [employer]) Diagnosis [facility] ACCOUNT BILL Comment:NEGATIVE FOR INTRAEP [...] UTERINE CERVIX / Unknown 07/03/2021 11:30 AM SUPERVISOR [employer] 07/04/2021 Narrative [facility] ACCOUNT BILL - 07/05/2021 11:06 PM SUPERVISOR [employer] No. of containers..01 ThinPrep Vial Resulting Agency Comment Lab Testing performed at: [address] [id number] Jaylene Eaton MD LAB - PATHOLOGY/CYTOLOGY OR DERABLES Final Result [facility] ACCOUNT BILL [address] [place] [address] from Last 3 Months or Most Recently Relevant to Health Maintenance Insurance [facility]
--- OUTSIDE RECORDS SUMMARY | 2025-06-06 08:19 | XMS_ITS | Encounter Summary ---
Author Organization [facility] Address [address] [place] [address] Care Team Providers Care Physical Science Professor Name Role Phone Unavailable Primary Care Provider Unavailabl e Encounter Details Date Type Department Care Team (Late st Contact Info) Description 10/25/2021 Lab Requisition [facility] [address], [place] [address] Live Conner MD [address] [place] [address] Social History Tobacco Use Types Packs/Day Years Used Date Smoking Tobacco: Former Cigarettes Q uit: 2014 Smokeless Tobacco: Never Alcohol Use Standard Drinks/Week Comments Yes 0 (1 standard drink = 0.6 oz pur e alcohol) Comments No Sex and Gender Information Value Date Recorded Sex Assigned at Not on file Legal Sex Female 5:49 AM IMPROVEMENT NURSE Gender Identity Not on file Sexual Orientation Not on file documented as of this encounter Plan of Treatment Not on file documented as of this encounter Procedures Procedure Name Priority Date/Time Associated Diagnosis Comments DERMATOPATHOLOGY Routine 10/24/2021 12:0 0 AM IMPROVEMENT NURSE documented in this encounter Results * DERMATOPATHOLOGY (10/24/2021 12:00 AM IMPROVEMENT NURSE) Case Report Dermatopathology Report Case: [id number] Authorizing Provider: Live Conner MD Collected: 10/24/2021 12:00 AM Ordering Location: [facility] Derm[facility] Lab Received: 10/25/2021 03:19 PM Pathologist: Yael Lama MD Specimen: Skin, mid forehead 2 3:49 PM [facility] DERMATOPATHOLOGY [facility]ORAT[facility] Final Diagnosis Specimen A. 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 Path # [id number]. 2 3:49 PM [facility] DERMATOPATHOLOGY [facility] Gross Description Specimen A: Received is one formalin filled container labeled with the patient's name and designated mid forehead. The specimen consists of a shave biopsy measuring [id number]. Jar 0. 3:49 PM [facility] DERMATOPATHOLOGY [facility]OR[facility] Microscopic Description Specimen A. SKIN, mid forehead: The epidermis shows parakeratosis, full thickness disorderly maturation of keratinocytes, mitoses at different levels, and dyskeratotic cells. Additional deeper sections were obtained and reviewed. 2 3:49 PM [facility] DERMATOPATHOLOGY [facility]OR[facility] Disclaimer An external and internal positive and negative controls are appropriate for the histochemical, immunohistochemical and immunofluorescence stain(s) in this case (if any), except where stated explicitly. The performance characteristics of the stain(s) cited in this report were developed and its performance characteristic determined by the Dermatopathology Laboratory at [facility], directed by Dr. Shruthi Gilliland. These tests need not be, and therefore are not, approved by the [place] Food and Drug Administration. The tests are used for clinical purposes. Billing Codes Specimen Charges Stain Charges 69303 1 2 3:49 PM IMPROVEMENT NURSE DERMATOPATHOLOGY LABORATORY Embedded Images 2 3:49 PM [facility] DERMATOPATHOLOGY [facility] Pathology/Cytolog y TISSUE SPECIMEN FROM SKIN / Unknown 10/24/2021 10/25/2021 3:19 PM IMPROVEMENT NURSE us Live Conner MD LAB - PATHOLOGY/CYTOLOGY ORDER ÁNGEL Final Result DERMATOPATHOLOGY LABORATORY [facility] - Department of Dermatology [facility] Medicine [address] [phone] documented in this encounter Visit Diagnoses Not on filedocumented in this encounter
[2025-06-06 08:34] LABS: Hematocrit 38.9 % (37.0-47.0); Hemoglobin 12.8 g/dL (12.0-15.0); Mean Corpuscular HGB Conc 32.9 g/dl (32-36); Mean Corpuscular Hemoglobin 29.6 pg (26-34); Mean Corpuscular Volume 89.8 fl (80-100); Platelet Count Result 419 k/mm3 (150-375); Red Blood Count 4.33 M/mm3 (4.2-5.4); White Blood Count 8.2 K/mm3 (4.5-10.0)
[2025-06-06 08:56] LABS: Total Protein Urine Random 14 mg/dL; Ur Ttl Prot Creatinine Ratio 0.10 mg/mg (0-0.20)
[2025-06-06 09:26] LABS: Parathyroid Intact 34.9 pg/mL (14.5-75.2)
[2025-06-06 13:02] LABS: Albumin Level 4.2 g/dL (3.5-5.1); Anion Gap 12 mmol/L (4-12); Blood Urea Nitrogen 25 mg/dL (7-17); Calcium 9.1 mg/dL (8.4-10.2); Carbon Dioxide 14 mmol/L (22-30); Chloride 107 mmol/L (98-107); Estimated Glomerular Filt Rate 39; Glucose 87 mg/dL (65-110); Potassium 4.2 mmol/L (3.4-5.0); Sodium 133 mmol/L (137-145)
== END 2025-06-06 08:12 | disposition home or self-care (01) ==
PROVIDERS: PCP Family Medicine; Visit Provider Internal Medicine Nephrology
DX: N18.32 Chronic kidney disease, stage 3b (principal)
CPT/HCPCS: 36415; 80069; 82570; 83970; 84156; 85027